=== PATIENT | female | born 1965 | race Caucasian/White ===

== ENCOUNTER → 2022-08-22 15:41 | Outpatient (REF) | payer BC, MEDICAID, SELFPAY | LOC: HO.SL 15:41 | PROVIDERS: PCP Nurse Practitioner Family; Visit Provider Psychiatry & Neurology Neurology | DX: G47.33 Obstructive sleep apnea (adult) (pediatric) (principal) | CPT/HCPCS: 95806 ==

== ENCOUNTER 2024-01-24 16:57 | Outpatient (REF) | payer BC, SELFPAY ==
--- NOTE | ~2024-01-24 | MR_ITS ---
EXAMINATION: MR LUMBAR SPINE WITHOUT CONTRAST CLINICAL INFORMATION: Radiculopathy. Pain in lower central spine, on and off . No radiation to lower extremities. COMPARISON: None. TECHNIQUE: Multiplanar multisequence MR imaging of the lumbar spine was done without IV contrast. FINDINGS: Coronal Alignment: Normal. No scoliosis. Sagittal Alignment: Normal lordosis. 2 mm retrolisthesis L2 on L3, and L4 on L5. Lumbosacral Junction: Normal. There are 5 [id number] lumbar-type vertebral bodies. Vertebral Bodies: Well maintained with normal height. No compression fractures, anomalies or other deformities. Disc Spaces and Endplates: Mild edematous endplate changes L5-S1 oriented to the right. Mild loss of disc height and signal spanning L3-S1, moderate at L5-S1. Disks are otherwise maintained. Spinal Canal: No abnormal developmental findings. Conus Medullaris: Terminates at L1. Morphology and signal is normal. Intradural Nerve Roots: Normal in appearance. No clumping or mass. T12-L1: No central canal or neural foraminal narrowing. L1-L2: No central canal or neural foraminal narrowing. L2-L3: Trace retrolisthesis. Mild bilateral facet degeneration. No significant central canal or neural foraminal narrowing. L3-L4: Mild bilateral hypertrophic degenerative facet changes. Mild posterior ligamentous thickening/involving. No significant central canal or subarticular recess narrowing. Mild bilateral neural foraminal narrowing. L4-L5: Moderate hypertrophic degenerative facet changes bilaterally, mild posterior ligamentous thickening, a diffuse minimal bulging symmetric disc. There is mild bilateral subarticular recess narrowing without contact or mass effect upon the traversing L5 roots. No central canal narrowing of significance. Mild bilateral neural foraminal narrowing. L5-S1: Moderate disc degeneration present. Moderate bilateral hypertrophic degenerative facet changes left greater than right. Shallow diffuse disc bulge present extending into both foraminal zones, contacting but not displacing the left greater than right S1 nerve roots within the subarticular recesses. Mild epidural lipomatosis within the subarticular recesses. No central canal narrowing. Mild to moderate right and mild left neural foraminal narrowing. Paravertebral and Included Extraspinal Soft Tissues: Normal caliber aorta. Imaged kidneys normal. Imaged SI joints normal. Paraspinal musculature normal. No abnormal adenopathy in the retroperitoneum. Imaged kidneys normal. MR/MR lumbar spine wo con IMPRESSION: 1. Mild multilevel lumbar spondylosis most significant at L5-S1 as discussed above. No definite nerve root impingement or high-grade central canal or neural foraminal stenosis. 2. Mild edematous endplate changes L5-S1 oriented to the right.
== END 2024-01-24 16:58 | disposition home or self-care (01) ==
LOC: HO.MRI 16:57
PROVIDERS: PCP Nurse Practitioner Family; Visit Provider Registered Nurse
DX: M54.16 Radiculopathy, lumbar region (principal)
CPT/HCPCS: 72148

== ENCOUNTER → 2024-01-24 16:58 | Outpatient (BNV) | payer BC, SELFPAY | PROVIDERS: PCP Nurse Practitioner Family; Visit Provider Radiology Diagnostic Radiology | DX: M47.896 Other spondylosis, lumbar region (principal) | CPT/HCPCS: 72148 ==

== ENCOUNTER 2024-07-29 15:21 | Emergency (ER) | payer BC, SELFPAY ==
--- NOTE | ~2024-07-29 | XR_ITS ---
EXAMINATION: XR CHEST CLINICAL INFORMATION: HTN COMPARISON: Chest radiograph May 12, 2016 TECHNIQUE: 2 views of the chest were obtained. FINDINGS: No significant abnormality is noted involving the heart, lungs, mediastinum, bony thorax or soft tissues. XR/XR chest 2V IMPRESSION: Unremarkable examination. Electronically signed by: Jeremi Tovar MD 07/29/2024 08:31 PM [facility]
--- NOTE | ~2024-07-29 | CT_ITS ---
EXAMINATION: CT HEAD WITHOUT CONTRAST CLINICAL INFORMATION: Headache. Hypertensive urgency. History of demyelinating disease. COMPARISON: Brain MRI from 07/11/2021. TECHNIQUE: Contiguous axial imaging was performed from the skull base to vertex without intravenous administration of contrast. This CT examination was performed using dose optimization techniques as appropriate, variously including the following: *Automated exposure control. *Adjustment of mA and/or kV according to patient size (this includes techniques or standardized protocols for targeted exams where dose is matched to indication/reason for exam; i.e. extremities or head). *Use of iterative reconstruction technique. DLP: 707 mGy-cm FINDINGS: There is no evidence of acute intracranial hemorrhage or edematous territorial infarction. Tatum-white matter differentiation is preserved. Scattered and partially confluent hypoattenuation in the periventricular and deep white matter. Proportional prominence of the ventricles and sulcal spaces without evidence of obstructive hydrocephalus. No abnormal mass effect or midline shift. No extra-axial fluid collections. Mild calcific atherosclerotic disease of the intracranial internal carotid arteries. No hyperdense vessel sign. No acute soft tissue or osseous abnormalities. Mild mucosal thickening of the paranasal sinuses. The mastoid air cells and middle ear cavities are clear. Dehiscence of the cartilaginous nasal septum. Left-sided lens extraction. CT/CT head/brain wo IV con IMPRESSION: 1. No evidence of acute intracranial hemorrhage or edematous territorial infarction. 2. Moderate to extensive underlying microangiopathy and generalized cerebral volume loss. Electronically signed by: Kushal Flores DO 07/29/2024 06:08 PM [facility] [place]
[2024-07-29 16:07] VITALS: BP 211/108; PULSE 90; RESP 16; TEMP 37; O2SAT 98; BMI 36.0
--- NOTE | 2024-07-29 16:11 | ECG_ITS ---
Test Reason : HYPERTENTION Blood Pressure : / mmHG Vent. Rate : 087 BPM Atrial Rate : 087 BPM P-R Int : 158 ms QRS Dur : 080 ms QT Int : 372 ms P-R-T Axes : 069 060 082 degrees QTc Int : 447 ms Normal sinus rhythm Nonspecific ST abnormality Abnormal ECG When compared with ECG of 12-MAY-2016 10:26, ST now depressed in Lateral leads Nonspecific T wave abnormality now evident in Lateral leads Referred By: Ami Ryder Electronically Signed By:Richy Franklin
--- NOTE | 2024-07-29 16:12 | ED.GENADULT ---
HPI - General Adult General Chief complaint: General Medical Stated complaint: High blood pressure Time Seen by Provider: 07/29/24 19:37 Source: patient Mode of arrival: ambulatory Limitations: no limitations History of Present Illness ED Provider: Dr. Suman Jansen HPI narrative: 58-year-old female with a history of migraine headaches, vertigo who presents emergency department for evaluation of elevated blood pressure. Patient states that 2 days prior she developed a spontaneous subconjunctival hemorrhage to her left medial I. She denied any eye pain, blurred vision. She states however she was had a persistent headache over the last week that is different from her migraine syndrome. The patient did go to an urgent care clinic and was given Cipro drops prophylactically to prevent corneal infection. She did have an elevated blood pressure at the urgent care clinic 158/72. She followed up today with her neurologist Dr. Paul for her headaches. She was seen in the office by an CAROL who noted an elevated blood pressure and refer the patient to the emergency department for evaluation. Patient states she does have a constant headache over the last week which is different than her migraines. She denied lightheadedness, dizziness, change in her vision, nausea, vomiting, chest pain, shortness of breath, dyspnea on exertion. Related Data Previous Rx's ?Medication ?Instructions ?Recorded lisinopril 10 mg tablet 10 mg PO DAILY #30 tabs 07/29/24 Allergies Allergy/AdvReac Type Severity Reaction Status Date / Time coconut [COCONUT] Allergy Mild NAUSEA & Unverified 07/29/24 16:11 VOMITING Sulfa (Sulfonamide Allergy Unknown RASH,ITCHY Unverified 07/29/24 16:11 Antibiotics) [SULFA (SULFONAMIDE ANTIBIOTICS)] Review of Systems Review of Systems: Yes all other systems are reviewed and are negative [facility] Past Medical History Medical History (Updated 07/30/24 @ 00:01 by Khushboo Byrd) Opioid abuse, in remission Cataract, left eye Migraine Surgical History (Updated 07/29/24 @ 20:31 by Luisa Sanford RN) H/O eye surgery S/P tonsillectomy Physical Exam ED Vital Signs: Vital Signs - 24 hr 07/29/24 16:07 07/29/24 19:55 Temperature 98.6 F 98 F Pulse Rate 90 85 Respiratory Rate 16 20 Blood Pressure 211/108 H 200/93 H Pulse Oximetry 98 97 Oxygen Delivery Method Room Air Room Air BMI result Body Mass Index 36.0 Vital signs did reveal elevated blood pressures 211/108 and 200/93 otherwise were unremarkable Exam: General: Awake, alert in no distress Head: Normocephalic, atraumatic EENT: PERRL, extraocular muscles intact, left eye did reveal a medial subconjunctival hemorrhage that does abut against the iris Neck: Supple, no adenopathy Lung: breath sounds symmetric, no wheezing, rales or rhonchi Chest: symmetric movement, nontender Heart: regular rate and rhythm, normal S1, S2 no murmurs or rubs Abdomen: soft, non-tender, nondistended, normal bowel sounds Back: no vertebral tenderness, no CVAT Extremities: no deformities, moves all extremities symmetrically Neuro: Awake, alert, oriented, normal speech, cranial nerves intact, moves all extremities symmetrically Psych: Pleasant, cooperative Course Course Course Narrative: This is a rapid medical exam performed by Ami Ryder PA-C. The patient is a 58-year-old female who presents with subconjunctival hemorrhage of the left eye and hypertensive urgency. Patient was at her neurologist's office, she was sent here for further assessment by Dr. Paul. Patient is neurologically intact, normal steady gait, no visual changes. We will be screening labs including troponin and urinalysis screening for end-organ damage, scanning her head, obtaining EKG and chest x-ray. Patient is able to return to the waiting room pending her assessment, we are trying to expedite her assessment. Medications Administered Discontinued Medications Generic Name Dose Route Start Last Admin Trade Name Freq PRN Reason Stop Dose Admin Lisinopril 10 mg 07/29/24 20:08 07/29/24 20:28 Lisinopril 10 Mg Tablet PO 07/29/24 20:09 10 mg ONCE ONE Administration Protocol Medical Decision Making Medical Decision Making MDM Narrative: 58-year-old female with a history of migraine headaches, vertigo who presents emergency department for evaluation of elevated blood pressure, left eye subconjunctival hemorrhage x2 days and headache x1 week. Vital signs did reveal elevated blood pressures otherwise unremarkable. Physical examination did reveal left medial subconjunctival hemorrhage but otherwise unremarkable. Differential diagnosis: ?Includes but is not limited to subarachnoid hemorrhage, subdural hemorrhage, stroke, renal disease, liver disease, essential hypertension, hypertensive emergency, electrolyte abnormalities, anemia Patient was initially treated with the following: Lisinopril 10 mg orally Course: My interpretation patient's laboratory evaluation is as follows: CBC was normal. CMP was normal. Troponin was below detectable limits. Urinalysis was negative for protein. CT scan of the head revealed no acute findings but she does have moderate to extensive underlying microangiopathy and generalized cerebral volume loss. Twelve EKG was unremarkable and chest x-ray was unremarkable. At this time I do not think the patient has hypertensive emergency and she most likely has essential hypertension. I did discuss this with the patient. The patient was started on lisinopril 10 mg daily. She was advised to check your blood pressures 3 times a week for the next 2 weeks and to try to establish follow up with a PCP. She was also advised to use her moisturizing eyedrops to prevent left sided conjunctival hemorrhage. She was given printed and verbal instructions and discharged home. Admission/Observation Consideration of admission/observation: Escalation of care including admission/observation considered (Yes) Lab Data MDM Lab Attestation statement: I reviewed the patient's lab results. 07/29/24 17:04 07/29/24 17:04 Labs: Lab Results 07/29/24 Range/Units 17:04 WBC 8.7 (4.8-10.8) X10*3/uL RBC 5.16 (4.20-5.50) X10*6/uL Hgb 15.3 (12.0-16.0) g/dl Hct 45.9 (37.0-47.0) % MCV 89.0 (80.0-98.0) fL MCH 29.7 (27.0-33.0) pg MCHC 33.3 (31.0-35.0) g/dl RDW 12.6 (11.0-16.0) % Plt Count 313 (160-400) X10*3/uL MPV 10.3 (9.4-12.3) fL Immature Gran % (Auto) 0.2 (0.0-0.4) % Neut % (Auto) 54.0 (45-73) % Lymph % (Auto) 36.4 (20-40) % [place] % (Auto) 6.7 (2-11) % Eos % (Auto) 1.8 (0-4) % Baso % (Auto) 0.9 (0-2) % Lymph # (Auto) 3.2 (1.2-4.9) X10*3/uL [place] # (Auto) 0.6 (0.1-1.2) X10*3/uL Eos # (Auto) 0.2 (0.0-0.4) X10*3/uL Baso # (Auto) 0.1 (0.0-0.2) X10*3/uL Abs Immat Gran (auto) 0.02 (0.00-0.03) X10*3/uL Absolute Neuts (auto) 4.7 (2.0-8.3) x10*3/uL Absolute Nucleated RBC 0.000 (0.0-0.012) X10*3/uL Nucleated RBC % (auto) 0.0 (0.0-0.2) /100WBC Sodium 142 (135-145) mmol/L Potassium 4.2 (3.3-5.1) mmol/L Chloride 106 (96-108) mmol/L Carbon Dioxide 27 (22-29) mmol/L Anion Gap 13 (12-20) BUN 10 (9-16) mg/dL Creatinine 0.67 (0.5-1.4) mg/dL Estim Creat Clear Calc 104.9 Estimated GFR > 60 Random Glucose 99 (60-115) mg/dL Calcium 9.9 (8.4-10.2) mg/dL Magnesium 2.0 (1.6-2.6) mg/dL Total Bilirubin 0.5 (0.0-1.0) mg/dL AST 25 (5-31) U/L ALT 30 (0-31) U/L Alkaline Phosphatase 111 (39-117) U/L Troponin I High Sens < 2.7 (<3.5-17.0) ng/L Total Protein 7.4 (6.5-8.0) g/dL Albumin 4.5 (3.5-5.0) g/dL Urine Color Yellow Urine Appearance Clear Urine pH 5.5 (5.0-9.0) Ur Specific [place] <= 1.005 (1.005-1.025) Urine Protein Negative (Neg-Trace) mg/dL Urine Glucose (UA) Negative (Negative) mg/dL Urine Ketones Negative (Negative) mg/dL Urine Blood Negative (Negative) Urine Nitrite Negative (Negative) Ur Leukocyte Esterase Small (1+) H (Negative) Urine RBC 0-2 (0-2) /HPF Urine WBC 0-5 (0-5) /HPF Ur Squamous Epith Cells 0-2 (0-2) /HPF Urine Bacteria None Seen (None Seen) Hyaline Casts 0-2 (0-2) /LPF Independent Interpretation I performed an independent interpretation of an: EKG and Plain X-Ray Interpretation: My independent interpretation the patient's 12 EKG done at 16:46 hours is as follows: Normal sinus rhythm with a rate of 87, normal SD interval, QRS duration QTC interval, no ST segment elevation, no ST segment depression, no PACs, no PVCs no significant T-wave abnormalities. My interpretation patient's two view chest x-ray is as follows: No acute disease Radiology Impression Discussion of test interpretation with radiology: I have reviewed the radiologist's reading. Radiologist Impression: CT head/brain wo IV con IMPRESSION: 1. No evidence of acute intracranial hemorrhage or edematous territorial infarction. 2. Moderate to extensive underlying microangiopathy and generalized cerebral volume loss. Electronically signed by: Kushal Flores DO 07/29/2024 06:[address] [facility] Dictated By: Jamin Flores DO Prescription Management I considered prescription management with: Other (Antihypertensive medication-lisinopril) Discharge Plan Discharge Clinical Impression: Subconjunctival hemorrhage of left eye, Hypertension Patient Disposition: Home, Self-Care Additional Instructions: Your blood work was unremarkable. Your chest x-ray was normal. Your EKG was normal. The CT scan of your brain revealed no bleeding in the brain, new stroke or tumor of the brain. High blood pressure instructions: The reason to check your blood pressure at home is to give your doctor an idea of what your blood pressure does when you are not in the doctor's office. Take your blood pressure in the mornings, Mondays , Wednesdays and Fridays and then write down these readings to discuss them with your doctor at your next visit. Do this for 2 weeks. If your doctor thinks that your blood pressures are too high then they will either increase your high blood pressure medication or start you on a 2nd high blood pressure medication once the 1st blood pressure medicine has been increased to the maximum dose. Blood pressure medications will take anywhere from 2-6 week before they reduce your blood pressure. The goal is to try to get 2 normal blood pressures over the next 2-6 months and over the rest of your life. Continue to use the Cipro drops for the subconjunctival hemorrhage also continue to use your moisturizing drops to help prevent a corneal abrasion. I prescribed lisinopril 10 mg once a day, 1 month supply with 3 refills. Try calling the following numbers to see if you can get a primary care provider to help you with your medical problems. [facility] PCP referral line [facility] Adult primary care and family medicine [facility] Dr. Santosh Frost is the doctor on-call for the emergency department today. You can try calling his office to see if he would be willing to take you on as a new patient and help you with your high blood pressure. Address: [address] [place] [address] [id number], [place] [address] Please return to the emergency department if your symptoms get worse or if you develop any new symptoms that are concerning to you. Prescriptions: New lisinopril 10 mg tablet 10 mg PO DAILY Qty: 30 3RF Interventions: ED Discharge Assessment Last Done: 07/29/24 20:49 Discharge Date/Time: 07/29/24 20:50 Print Language: Kosovan
[2024-07-29 17:10] LABS: MANUAL DIFF FLAG NO
[2024-07-29 17:13] LABS: Appearance Urine Clear; Color Urine Yellow; Glucose Urine UA Negative (Negative); Leukocyte Esterase Urine Small (1+) (Negative); Nitrite Urine Negative (Negative); PH 5.5 (5.0-9.0); Specific Gravity - Urine <= 1.005 (1.005-1.025); UMIC TRIGGER UACC YES; Urine Blood Negative (Negative); Urine Ketones Negative (Negative); Urine Protein Negative (Neg-Trace)
[2024-07-29 17:17] LABS: Basophils Absolute Auto 0.1 X10*3/uL (0.0-0.2); Basophils Percent Auto 0.9 % (0-2); Eosinophils Absolute Auto 0.2 X10*3/uL (0.0-0.4); Eosinophils Percent Auto 1.8 % (0-4); Hematocrit 45.9 % (37.0-47.0); Hemoglobin 15.3 g/dl (12.0-16.0); Imm Gran Abs Auto 0.02 X10*3/uL (0.00-0.03); Imm Gran Pct Auto 0.2 % (0.0-0.4); Lymphocytes Absolute Auto 3.2 X10*3/uL (1.2-4.9); Lymphocytes Percent Auto 36.4 % (20-40); Mean Corpuscular HGB Conc 33.3 g/dl (31.0-35.0); Mean Corpuscular Hemoglobin 29.7 pg (27.0-33.0); Mean Platelet Volume 10.3 fL (9.4-12.3); Monocytes Absolute Auto 0.6 X10*3/uL (0.1-1.2); Monocytes Percent Auto 6.7 % (2-11); Neutrophils Absolute Auto 4.7 x10*3/uL (2.0-8.3); Platelet Count 313 X10*3/uL (160-400); Red Blood Count 5.16 X10*6/uL (4.20-5.50); Red Cell Distribution Width 12.6 % (11.0-16.0); White Blood Count 8.7 X10*3/uL (4.8-10.8)
[2024-07-29 17:25] LABS: Bacteria Urine None Seen (None Seen); Hyaline Casts Urine 0-2 /LPF (0-2); RBC Urine 0-2 /HPF (0-2); Squamous Epithelial Cell Urine 0-2 /HPF (0-2); UACC Culture Trigger YES; WBC Urine 0-5 /HPF (0-5)
[2024-07-29 17:42] LABS: Troponin-I High Sensitivity < 2.7 ng/L (<3.5-17.0)
[2024-07-29 18:05] LABS: Alanine Aminotransferase 30 U/L (0-31); Albumin Level 4.5 g/dL (3.5-5.0); Alkaline Phosphatase 111 U/L (39-117); Anion Gap 13 (12-20); Aspartate Amino Transferase 25 U/L (5-31); Bilirubin Total 0.5 mg/dL (0.0-1.0); Blood Urea Nitrogen 10 mg/dL (9-16); Calcium 9.9 mg/dL (8.4-10.2); Carbon Dioxide 27 mmol/L (22-29); Chloride 106 mmol/L (96-108); Creatinine Clr Calc Pharmacy 104.9; Estimated Glomerular Filt Rate > 60; Glucose Random 99 mg/dL (60-115); Potassium 4.2 mmol/L (3.3-5.1); Sodium 142 mmol/L (135-145); Total Protein 7.4 g/dL (6.5-8.0)
[2024-07-29 19:55] VITALS: BP 200/93; PULSE 85; RESP 20; TEMP 36.6; O2SAT 97
[2024-07-29 20:28] VITALS: BP 200/93
[2024-07-29] MEDS: lisinopriL 10 MG TABLET PO (20:28)
--- NOTE | 2024-07-29 20:32 | PC.NURSE ---
pt a&ox3, pt medicated for htn, lt eye red- pt denies pain/does not have vision loss in that eye. per provider pt medicated for htn and can discharged.
[2024-07-29 20:49] VITALS: BP 200/93; PULSE 85; RESP 20; TEMP 36.6; O2SAT 97
== END 2024-07-29 20:50 | disposition home or self-care (01) ==
PROVIDERS: Physician Assistant Medical; Emergency Provider Emergency Medicine Emergency Medical Services
DX: H11.32 Conjunctival hemorrhage, left eye (principal); I16.0 Hypertensive urgency; R51.9 Headache, unspecified; R94.31 Abnormal electrocardiogram [ECG] [EKG]; Z79.899 Other long term (current) drug therapy
CPT/HCPCS: 36415; 70450; 71046; 80053; 81001; 83735; 84484; 85025; 87086; 93005; 99284; 99285

== ENCOUNTER → 2024-07-29 16:11 | Outpatient (BNV) | payer BC, SELFPAY | PROVIDERS: Emergency Provider Emergency Medicine Emergency Medical Services; Visit Provider Internal Medicine Cardiovascular Disease | DX: I10 Essential (primary) hypertension (principal) | CPT/HCPCS: 93010 ==

== ENCOUNTER 2024-08-13 15:19 | Outpatient (REF) | payer BC, SELFPAY ==
[2024-08-13 17:50] LABS: Folate 10.2 ng/mL (> or = 4.0); Vitamin B12 423 pg/mL (200-900)
[2024-08-13 17:58] LABS: TSH reflex Free T4 1.12 uIU/mL (0.32-4.0)
== END 2024-08-13 15:20 | disposition home or self-care (01) ==
LOC: HO.LAB 15:19
PROVIDERS: PCP Nurse Practitioner Family; Visit Provider Registered Nurse
DX: G31.84 Mild cognitive impairment of uncertain or unknown etiology (principal)
CPT/HCPCS: 36415; 82607; 82746; 84443

== ENCOUNTER 2024-11-05 12:54 | Outpatient (AMB) | payer BC, SELFPAY ==
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
[2024-11-05 13:18] VITALS: BP 121/62; PULSE 83; RESP 16; TEMP 36.5; O2SAT 98; BMI 33.4
--- OUTSIDE RECORDS SUMMARY | 2024-11-05 15:03 | XMS_ITS | Patient Health Record ---
Author Organization [facility] Address [address] [place] [address] Support Name Relationship Address Phone ABILIOJOEAN Guarantor Unknown [phone] Reason For Referral No Information Medications Medication SIG (Take, Route, Frequency, Duration) Notes Start Date End Date Status [place] Carbonate 100MG 1 ORAL three pricilla es daily for -3 [facility] 05/15/2012 Active LaMICtal 100MG 1 ORAL daily for -3 [facility] 05/15/2012 Active Immunizations Vaccine Route Administration Date Status Comme nts Influenza, live, intranasal Intramuscular 05/15/2012 Pendi ng Problems Problem Type SNOMED Code ICD Code Onset Dates Problem Status W/U Status Risk Notes Problem Chronic bipolar I disorder, most recent episode depressed (disorder) (08594845) Bipolar I disorder, most recent episode (or current) depressed, unspecified (296.50) Active confirmed Major Problem Migraine (disorder) (21629489) Migraine, unspecified without mention of intractable migraine without mention of status migrainosus (346.90) Active confirmed Major Problem Gynecological examination normal ([id number]) Routine gynecological examination (V72.31) Active confirmed Diag Problem Counseling ([id number]) Counseling NOS (V65.40) Active confirmed Diag Plan Of Treatment No Information Insurance Providers Payer Name Payer Address Payer Phone Subscriber Number Group Number Insured Name Patient Relationship to Insured Coverage Start Date Coverage End Date [facility] MEDIC[facility] PPO [address] [place] [address] [id number] SACHIN KNOX Self - patient is the insured
--- OUTSIDE RECORDS SUMMARY | 2024-11-05 15:03 | XMS_ITS | Clinical Summary ---
Author Organization [facility] Address [address] [place] [address] Care Team Providers Care Blueprinting Machine Operator Name Role Phone Laury Shine DANIELA Primary Care Provider [phone] Source Comments PLEASE NOTE, if this patient is a minor, it may be UNLAWFUL to discuss sensitive information that is contained in these records (such as FAMILY PLANNING, MENTAL HEALTH or SUBSTANCE ABUSE) with the minor patient's parent or other person without the patient's specific authorization.[facility] Allergies Active Allergy Reactions Criticality Noted Date Comments Sulfa (Sulfonamide Antibiotics) Rash 03/2015 Medications topiramate (TOPAMAX) 50 mg tabletIndicatio ns:Migraine without aura and with status migrainosus, not intractable Take by mouth 2 (two) times daily. 6 Active SUMAtriptan succinate (IMITREX) 100 mg tabletIndicatio ns:Migraine with aura and with status migrainosus, not intractable take 1 tablet by mouth every 4 hours if needed UP TO TWICE A DAY FOR 30 DAYS 0 8 Active polyethylene glycol 3350 17 gram/dose powderIndicatio ns:LLQ abdominal pain,Difficulty passing stool Take 17 g by mouth once daily 289 g 1 Active psyllium husk (METAMUCIL) 0.52 gram capsuleIndicati ons:LLQ abdominal pain,Difficulty passing stool Take 1 Capsule by mouth 2 (two) times daily as needed for constipation 30 Capsule 1 Active Active Problems Problem Noted Date Diagnosed Date Inclusion cyst of right breast 06/18/2019 Overview (06/18/2019): As per [facility] no mammographic evidence of malignancy and ultrasound 06/09/2019 showed large bilateral waxing waning cysts. A dominant cyst on the right accounts for palpable abnormality. S/P aspiration 06/10/2019 The cystic mass was completely aspirated with ultrasound guidance. There was no evidence of residual solid lesion. Pap smear for cervical cancer screening 08/18/20 16 Overview (2016): 07/2015 nil with ECC hpv neg Palpitation 2016 Overview (2016): Suspect drug to drug interaction- pt to speakn with psych prescriber Right leg pain 06/21/2016 Overview (06/21/2016): [facility] er 06/13/16- neg for DVT Demyelinating disease 04/29/2016 Overview (08/02/2016): 07/17/16- saw neuro again- assessment: migraine with aura/pineal gland cyst/ORTEGA/ptosis/DD- tx- topiramate 50mg bid, and r/t 4 mon Saw neuro- 05/22- dx with bipolar,migraine with aura,pineal gland cyst, ORTEGA,ptosis, and demylenating dz- r/t 2 month- he rev MRI form 03/2016- 04/06/16:Saw Dr. Jaden Gonzales, Neuro [phone]- Per neuro note- - doing MRI 03/2016- follow up 6 weeks- DUE approx 05/18 MELBA KNOX :1965 Result type:MRI Brain W/O ContrastResult date:04/19/2016 15:39Result status:Auth (Verified)Result title:MRI Brain W/O Contrast Performed by:-- Verified by:Brock Alejandre MD on April 20, 2016 16:32Encounter info:[id number], [facility], [facility], 04/19/2016 - Reason For Exam RESULT: MRI Brain W/O Contrast [facility] VISIT NUMBER :[id number] Patient Name : Melba Knox Date of : 1965 Date of Exam : 04/19/2016 Referring Physician : CHAMP GONZALES [address] [place] [address] Dr/[address] [place] [address] Exam : MR - BRAIN (C-) CPT 34234 - Room Description : [facility] Espr 1.5 Technique : Sag T1, Ax T2, Ax T2 Flair, Ax DWI, Ax SWI, Sag Flair Final Report HISTORY: Demyelinating disease. COMPARISON: 11/18/2010 performed at [facility] FINDINGS: Multiple supratentorial T2 hyperintense white matter lesions throughout the supratentorial white matter are again noted. There is at least one new lesion within the right frontal white matter (series 5, image 13) measuring 3 mm. The remainder of the lesions are similar, and the corpus callosum is similar in signal and configuration. A septated appearing pineal lesion is similar. The ventricles and sulci are unchanged in size. No new mass effect or extra-axial fluid collection. No restricted diffusion or abnormal susceptibility artifact. The visualized extracranial soft tissues and orbital structures are unremarkable. IMPRESSION: 1. Supratentorial T2 hyperintense white matter lesions are again noted. No particular feature is present to render a specific diagnosis. A new 3 mm lesion is present within the right frontal white matter. ----- PHYSICIAN : BROCK ALEJANDRE MD (Signature on file) 04/20/2016 Signature Line Dictated By: Brock Alejandre MD Dictated Date/Time: 04/20/16 4:32 pm Reviewed By: Brock Alejandre MD Signed By: Brock Alejandre MD Signed Date/Time: 04/20/16 4:32 pm Transcribed By: CHELSY Transcribed Date/Time: 04/20/16 4:32 pm Printed By: Sanjuana Bass NP Encounter for gynecological examination 08/04/20 Overview (12/22/2016): Pap done today 12/11/2016 NIl with ECc HPV neg- repeat 2021 H/O mammogram 08/04/2015 Overview (03/11/2018): [facility] 08/11/15 bilat dx mammo done-birads2, return to annual screen mammo due jul 2016 At 4 oclock [place] border, and at 9-10 oclock 1 in from border, screen and dx ord today( mammo) 03/04/18 [facility] mammo and L breast U/S. the palpable finding corresponds to a bilobed parallell circumscribed hypoechoic lesion with increased through transmission and no internal vascularity, most likely complicated cyst. U/S guided aspiration recommended to confirm. Should this not aspirate, biopsy would be needed. BIRADS 4. Smoker 02/17/2014 Bipolar 1 disorder 05/27/2013 Overview (2016): Followed by Eric burgess, has rxer- and counseling Migraine with aura 05/27/2013 Overview (06/02/2016): Emergent eye eval- 05/16/16- [facility] eye- [phone]- Retinal hemorrhage OS- - likely resolve on its own 04/06/[address] Kyra marquis MD Neuro- assessment- bipolar,migraine with aura,pineal gland cyst,ORTEGA,ptosis, dymelinating dz- tx start topiramate 50mg po BID, keep migraine diary, and do MRI no contrast for demyelinating dz [phone] Pineal gland cyst 05/27/2013 Overview (05/03/2016): Had known to have a pineal cyst- had MRI mar 2016- see Demyelinating dz prob for MRI report A septated appearing pineal lesion is similar. PUD (peptic ulcer disease) Overview (2016): symptoms back- testing for h pylori years ago, 1995 Epigastric abdominal pain Overview (10/06/2016): Saw GI 09/08/16 Joseph Luke PA-C- plann EGD 10/04/[address] garrido 07/2016 has re occurred- ref to gi years ago, 1995 Resolved Problems Problem Noted Date Diagnosed Date Resolved Date VNGMQUZE69/23/16 2016 08/16/2018 Immunizations Name Administration Dates Next Due HEP A-HEP B 2016 Hep A, adult 09/30/2015 Hep B, Adult/Adol (ENERGIX/RECOMBIVAX) 6,09/30/2015 INFLUENZA, SEASONAL, INJECTABLE 05/27/2013 INFLUENZA, SEASONAL, INJECTA BLE, PRESERVATIVE FREE 09/30/2015(Deferred: Out of Stock) Family History Medical History Relation Name Comments Arthritis Mother giant cell alondra ritis Cancer Mother skin CA, colon 2007 with surgery Hypertension Mother Relation Name Status Comments Brother Alive 3 brother 1 dep ression, the other 2 well Father (Age 51) ETOH Mother Alive Sister 1 Alive has 3, [address] [facility] home is 60 yr old, 1 passsed form DRUGs, 1 well Sister 2 Social History Tobacco Use Types Packs/Day Years Used Date Smoking Tobacco: Every Day Cigarettes 0.5 20 Smokeless Tobacco: Never Tobacco Cessation:Ready to Q uit: Yes; Counseling Given: Yes Comments:1/2 pack a day Alcohol Use Standard Drinks/Week Comments No 0 (1 standard drink = 0.6 oz pur e alcohol) none Social Connections Answer Date Recorded Connectedness 0 05/14/2024 Financial Resource Strain Answer Date R ecorded Financial Resource Strain 0 2018 Stress Answer Date Recorded Stress 0 04/19/2019 Physical Activity Answer Date Recorded Physical Activity 0 04/19/2019 Food Insecurity Answer Date Recorded Food 0 05/22/2024 Transportation Needs Answer Date Record ed Transportation 0 04/19/2019 Housing Stability Answer Date Recorded Housing 0 04/19/2019 Safety and Environment Answer Date Jose Cruz rded Safety 0 04/19/2019 Utilities Answer Date Recorded Utilities 0 04/19/2019 Employment Answer Date Recorded Stress 0 05/14/2024 Comments No Sex and Gender Information Value Date Recorded Sex Assigned at Female 11/02/2017 5:13 AM PST Legal Sex Female 10:09 AM PDT Gender Identity Female 11/02/2017 5:13 AM PST Sexual Orientation Don't know 11/02/2017 5: 13 AM PST 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 Not on file Not on file Last Filed Vital Signs Vital Sign Reading Time Taken Comments Blood Pressure 141/88 03/21/2021 10:13 AM EDT Pulse 99 03/21/2021 10:13 AM EDT Temperature 37.2 ??C (98.9 ??F) 03/21/2021 10:13 AM E DT Respiratory Rate 16 03/21/2021 10:13 AM EDT Oxygen Saturation 98% 05/10/2018 9:30 AM EDT Inhaled Oxygen Concentration - - Weight 95.3 kg (210 lb) 03/21/2021 10:13 AM EDT Height 165.1 cm (5' 5 ) 06/13/2016 8:49 AM EDT Body Mass Index 34.95 06/13/2016 8:49 AM EDT Plan of Treatment Health Maintenance Due Date Last Done Comments HPV Screening 1965 Imm-DTaP/Tdap/Td (1 - Tdap) 1986 Imm-Pneumococcal (1 of 2 - PCV) 1986 CT Colonography 2012 Colonoscopy 2012 Colorectal Cancer Screening 2012 FIT/gFOBT 2012 Fecal DNA 2012 Flexible Sigmoidoscopy 2012 Tobacco Cessation Counseling (#1) 02/17/2015 014, 02/23/2014 Tobacco Screening 06/15/2015 06/15/2014, 02/23/2014 Imm-Zoster, Recombinant (1 of 2) 2017 Pap Smear 08/04/2018 08/04/2015, 08/04/2015 Annual Preventive Care Visit 08/16/2019, 12/11/2016, 2016, Additional history exists Diabetes Screening 2019 2016, 0 05/03/2016, 08/23/2015, Additional history exists Breast Cancer Screening (Mammogram) 06/09/2020 06/09/2019, 10/09/2016, 08/11/2015 Cervical Cancer Screening 08/04/2020 Pap + HPV 08/04/2020 08/04/2015 Lipid Screening 08/23/2020 08/23/2015 Hypertension Screening (#1) 03/21/2022 Bpn-BLXAZ-11 ( season) 2024 021, 11/26/2020 Imm-Influenza (#1) 2024 05/27/2013 Alcohol and Drug Screen 08/27/2024 09/24/19 20, 06/03/2019, 02/18/2018, Additional history exists Depression Annual Screen 08/27/2024 020, 02/18/2018, 04/02/2017 (Managed by Outside Provider) HIV Screening Completed 2016 Hepatitis C Screening Completed 2016, 015 Imm-Hepatitis B Completed 2016, 11/2015, 09/30/2015 Cervical Ablation/Cold-Knife Conization Discontinued Cervical Cryotherapy Discontinued Colposcopy Discontinued Endometrial Biopsy Discontinued Excision/Leep Discontinued HPV Genotyping Discontinued Vaginal Pap Discontinued Vulvoscopy Discontinued Procedures Procedure Name Priority Date/Time Associated Diagnosis Comments MAMMOGRAM BI-RADS, ABSTRACTED Routine 06/09/2019 10:12 AM EDT ANTIBODY HIV-1&HIV-2 SINGLE RESULT Routine 2016 3:52 PM EST Screening examination for venereal disease HEPATITIS A,B,C PANEL Routine 2016 3:52 PM EST Screening examination for venereal disease GLUCOSE, BLOOD (POCT) 22424 Routine 2016 3:27 PM EST Palpitation Dizzy LIPID PANEL Routine 08/23/2015 8:24 AM EST Routine adult health maintenance PAP, LIQUID BASED Routine 08/04/2015 2:5 6 PM EST Pap smear for cervical cancer screening Encounter for gynecological examination from Last 3 Months or Most Recently Relevant to Health Maintenance Results * MAMMOGRAM BI-RADS, ABSTRACTED (06/09/2019 10:12 AM EDT) BI-RADS ASSESSMENT 1 - Negative: means that there is no significant or noticeable abnormality to report. BI-RADS FOLLOW-UP 1 - Routine Screening Anatomical Region Laterality Modality Other Impressions 06/09/2019 10:12 AM EDT As per [facility] breast and [facility] no mammographic evidence of malignancy. Large bilateral waxing waning cysts. A dominant cyst on the right accounts for palpable abnormality. I have discussed the findings directly with the patient. The cystic mass was completely aspirated on 06/10/2019 with ultrasound guidance. There was no evidence of residual solid lesion. us Provider Jose LOPEZ MAMMO Final Result * HEPATITIS A,B,C PANEL (2016 3:52 PM EST) HEPATITIS B SURFACE ANTIBODY NEGATIVE NEGATIVE [facility] HEPATITIS B SURFACE ANTIGEN NEGATIVE NEGATIVE [facility] HEPATITIS C VIRUS DIAGNOSTIC NEGATIVE NEGATIVE [facility] HEPATITIS B CORE ANTIBODY NEGATIVE NEGATIVE [facility] HEPATITIS A ANTIBODY TOTAL NEGATIVE NEGATIVE [facility] Blood specimen (specimen) Blood / Unknown 2016 3:52 PM EST 2016 4:04 PM EST [facility] - 2016 6:36 PM EST [facility] [address] [place] [address] BASELINE:1548 SAMPLE:1604 PT ID [id number] ORD# [id number] us Sanjuana TIPTON LAB - BLOOD DRAW Edited Resul t - Final Performing Organization Address [facility]/ZIP Co de Phone Number [address] [address], [place] [phone] * HIV-1 & HIV-2 ANTIBODIES (2016 3:52 PM EST) Pathologist [facility] HIV 1 AND 2 ANTIBODY SCREEN NEGATIVE NEGATIVE [facility] Comment: This assay is a 4th generation assay allowing for earlier detection of HIV infection by detecting the presence of the HIV-1 p24 antigen as well as the traditional antibodies to HIV type 1 (including group O) and type 2. ??Use of a 4th generation assay is the current CDC recommendation for HIV screening. Blood specimen (specimen) Blood / Unknown 2016 3:52 PM EST 2016 4:04 PM EST [facility] - 2016 7:06 PM EST [facility] [address] [place] [id number] BASELINE:1548 SAMPLE:1604 PT ID [id number] ORD# [id number] us Sanjuana TIPTON [facility] - BLOOD DRAW Final Result Performing Organization Address [facility]/ZIP Co de Phone Number [address] [address], [place] [phone] * GLUCOSE, BLOOD (POCT) [id number] (2016 3:27 PM EST) GLUCOSE 130 65 - 139 mg/dL [facility] OFFICE POCT Blood specimen (specimen) Blood / Unknown 2016 3:27 PM EST Sanjuana TIPTON [facility] - BLOOD DRAW Final Result [facility] POCT * (ABNORMAL) LIPID PANEL (08/23/2015 8:24 AM EST) CHOLESTEROL 195 0 - 200 mg/dL [facility] TRIGLYCERIDES 124 0 - 150 mg/dL [facility] HDL CHOLESTEROL 56 >40 mg/dL [facility] LDL CALCULATED 115(H) 0 - 100 mg/dL [facility] TC-HDLC RATIO 3.5 0 - 4.4 mg/dL [facility] Blood specimen (specimen) Blood / Unknown 08/23/2015 8:24 AM EST 08/23/2015 8:24 AM EST Narrative [facility] - 08/23/2015 11:11 AM EST [facility] [address] [place] [address] PT ID [id number] ORD# [id number] Kerry Lamar NP LAB - BLOOD DRAW Edited Result - Final [facility] [address] [place] [address], * PAP, LIQUID BASED (08/04/2015 2:56 PM EST) PAP NIL with ECc HPV neg NORMAL - ABNORMAL [facility] GC/CHLAMYDIA neg [facility] Specimen from uterine cervix (specimen) Cervix uteri structure / Unknown 08/04/2015 2:56 PM EST Sanjuana Shelia ANP LAB - NO BLOOD DRAW Final Res ult [facility] [address] [place] [address], from Last 3 Months or Most Recently Relevant to Health Maintenance Insurance [employer] Subscriber Plan / Payer (Ef fective 2014-Present) Name:Melba Knox Relation to Subscriber:Self Name:MELBA KNOX Payer ID:[id number] Type:Indemnity Address: [address] [place] [address] [place] Care Teams Blueprinting Machine Operator Relationship Specialty Start Date End Date Laury Shine FNP [address] [place] [address] PCP - General Family Medicine, FLEXO FOLDER GLUER OPERATOR 09/22/16
== END 2024-11-05 14:16 | disposition home or self-care (01) ==
PROVIDERS: PCP Nurse Practitioner Family; Visit Provider Nurse Practitioner Family
DX: Z00.00 Encounter for general adult medical examination without abnormal findings (principal); F31.81 Bipolar II disorder; E66.9 Obesity, unspecified; Z68.33 Body mass index [BMI] 33.0-33.9, adult; I10 Essential (primary) hypertension; F41.9 Anxiety disorder, unspecified; F32.A Depression, unspecified; Z12.31 Encounter for screening mammogram for malignant neoplasm of breast; F17.210 Nicotine dependence, cigarettes, uncomplicated; Z23 Encounter for immunization

== ENCOUNTER → 2024-11-05 12:54 | Outpatient (BNVA) | payer BC, SELFPAY | PROVIDERS: Visit Provider Nurse Practitioner Family | DX: Z00.00 Encounter for general adult medical examination without abnormal findings (principal); Z23 Encounter for immunization; I10 Essential (primary) hypertension; F41.9 Anxiety disorder, unspecified; F32.A Depression, unspecified; F31.81 Bipolar II disorder; E66.9 Obesity, unspecified; Z68.33 Body mass index [BMI] 33.0-33.9, adult; F17.210 Nicotine dependence, cigarettes, uncomplicated; Z79.899 Other long term (current) drug therapy | CPT/HCPCS: 90471; 90715; 96127 ==

== ENCOUNTER 2024-11-18 08:49 | Outpatient (REF) | payer BC, SELFPAY ==
[2024-11-18 11:14] LABS: Cholesterol 207 mg/dL (<200); HDL Cholesterol 43 mg/dL (>40); LDL Cholesterol Calculated 139 mg/dL (<100); Triglycerides 128 mg/dL (<150)
[2024-11-18 11:32] LABS: Vitamin D 25-OH Total 33.9 ng/mL (>30)
[2024-11-18 11:43] LABS: Creatinine Urine 121.18 mg/dL; Microalbum/Creatinine Ratio Ur 10.7 ug/mg cr (<30)
== END 2024-11-18 08:50 | disposition home or self-care (01) ==
LOC: HO.HMGCLDS 08:49
PROVIDERS: PCP Nurse Practitioner Family; Visit Provider Nurse Practitioner Family
DX: Z00.00 Encounter for general adult medical examination without abnormal findings (principal)
CPT/HCPCS: 36415; 80061; 82043; 82306; 82570

== ENCOUNTER 2024-11-24 14:21 | Outpatient (AMB) | payer BC, SELFPAY ==
--- NOTE | 2024-11-24 14:16 | A.OFFPC_ITS ---
Intake Visit Reasons: 2 wk fu blood work Intake Note: patient here for 2 wks telehealth follow up for blood work Computer Operator Required: No Is last menstrual period known: No Post menopausal: No Patient : No Allergies coconut [COCONUT] Allergy (Mild, Verified 11/24/24 14:17) NAUSEA & VOMITING Sulfa (Sulfonamide Antibiotics) [SULFA (SULFONAMIDE ANTIBIOTICS)] Allergy (Unkn own, Verified 11/24/24 14:17) RASH,ITCHY Tobacco use date assessed: 11/24/24 Dental Screening Dental Screen Date: 11/24/24 Did you have a dental visit in the last 12 months?: No Did you have a dental problem in the last 6 months where you did not have access to dental care?: No Was dental information given to patient?: No HPI HPI Comments History of Present Illness Details 59-year-old [facility] results. She admits to taking her medications as prescribed without adverse reactions. She offers no complaints and denies acute symptoms at this time. [facility] Medical History (Updated 11/24/24 @ 15:05 by Shirley Batres CNP) Bipolar 1 disorder Depression Anxiety Vertigo Swelling of both ankles Opioid abuse, in remission Cataract, left eye Migraine Surgical History (Updated 11/05/24 @ 13:23 by Olya Lowe MA) H/O tubal ligation H/O eye surgery S/P tonsillectomy Family History (Updated 11/05/24 @ 13:18 by Olya Lowe MA) Father Alcohol abuse Sister Alcohol abuse FH: mental illness High blood pressure Brother Substance abuse High blood pressure Diabetes Mother High blood pressure Skin cancer Colon cancer Kidney disease Social History Housing: House Patient Tobacco Use Status: Current everyday Tobacco user Cigarettes Per Day: 10 Years Smoked: 20 e-Cigarette/Vaping Use: Never Used Second Hand Smoke Exposure: No service: No Current occupational status: employed 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 Current occupational exposures/hazards: No Cognitive needs: No Hearing needs: No Vision needs: Yes Questionnaire Thrive Questionnaire Date Thrive assessed: 10/29/24 I am a: Patient What is your living situation today?: I have a steady place to live Within the past 12 months, did the food you bought not last and you didn't have the money to get more?: Never true Within the past 12 months, did you worry whether your food would run out before you got money to buy more?: Never true Do you have trouble paying for medicines?: No Do you have trouble getting transportation to medical appointments?: No Do you have trouble paying your heating and electricity bill?: No Do you have trouble taking care of your child, family member or friend?: No Do you have trouble with day-to-day activities such as bathing, preparing meals, shopping, managing finances, etc.?: No Are you currently unemployed and looking for a job?: No Are you interested in more education?: No Please select the resources that you would like help with: None THRIVE Score: 0 HAMMAD-7 AMB Questionnaire HAMMAD-7 Date HAMMAD - 7 assessed: 11/05/24 Source: Developed by Drs. Raad Willard, Herminia Garcia, Al Finney and colleagues, with an educational mary from [employer]. Review of Systems Const Details: Denies chills, Denies fatigue, Denies fever(s), Denies headache(s) and Denies weakness Cardiac Denies chest pain, Denies claudication, Denies leg edema, Denies lightheadedness, Denies palpitations, Denies dyspnea, Denies dyspnea on exertion, Denies orthopnea and Denies other (Loss of consciousness) Resp Denies cough, Denies excessive phlegm production, Denies dyspnea, Denies dyspnea on exertion, Denies snoring and Denies wheezing Physical exam (Primary Care) Tobacco/Smoking Status: Tobacco use Status Tobacco use date assessed 11/24/24 11/24/24 14:19 Patient Tobacco Use Status Current everyday Tobacco 11/24/24 14:19 e-Cigarette/Vaping Use Never Used 11/24/24 14:19 Thrive Assessment: Date of Thrive Assessment Date Thrive assessed 10/29/24 11/24/24 14:19 Const Other: Patient is alert and oriented x3. Telehealth Telehealth Telehealth Platform: Telephone Location of provider rendering services: practice address Location of patient: address on file Patient Identification confirmed using: Name, : Yes Telehealth method: voice only Patient verbally consented to treatment: Yes Patient verbally consented to billing insurance company: Yes Patient informed of any privacy concerns related to visit: Yes Coding Level of Care Code Tele New Pt Level 3 (37243) Diagnoses Hypercholesterolemia E78.00 Time Spent (min) 10 Assessment & Plan Assessment & Plan (1) Hypercholesterolemia: Code(s): E78.00 - Pure hypercholesterolemia, unspecified Category: Medical Plan: Recent total cholesterol and LDL levels are slightly elevated, 207 and 139 respectively. Advised to limit foods high in saturated fat and avoid foods high in trans fat. Routine exercise encouraged. Fast for 10-12 hours, may drink water, and perform lipid panel blood work 2-3 days before next visit. Follow-up as scheduled in January for hypercholesterolemia and hypertension or sooner with symptoms or concerns. Verbalized understanding and agreed with treatment plan. Orders: Orders Lipid Panel 2 Months E78.00 - Pure hypercholesterolemia, unspecified Medications: Refilled lisinopril 10 mg PO DAILY 30 tabs 3RF
--- OUTSIDE RECORDS SUMMARY | 2024-11-24 16:11 | XMS_ITS | Patient Health Record ---
Author Organization [facility] Address [address] [place] [address] Support Name Relationship Address Phone ABILIOJOEAN Guarantor Unknown [phone] Reason For Referral No Information Medications Medication SIG (Take, Route, Frequency, Duration) Notes Start Date End Date Status Horatio Carbonate 100MG 1 ORAL three pricilla es daily for -3 [facility] 05/15/2012 Active LaMICtal 100MG 1 ORAL daily for -3 [facility] 05/15/2012 Active Immunizations Vaccine Route Administration Date Status Comme nts Influenza, live, intranasal Intramuscular 05/15/2012 Pendi ng Problems Problem Type SNOMED Code ICD Code Onset Dates Problem Status W/U Status Risk Notes Problem Chronic bipolar I disorder, most recent episode depressed (disorder) (07831094) Bipolar I disorder, most recent episode (or current) depressed, unspecified (296.50) Active confirmed Major Problem Migraine (disorder) (66958983) Migraine, unspecified without mention of intractable migraine without mention of status migrainosus (346.90) Active confirmed Major Problem Gynecological examination normal (225894003881144) Routine gynecological examination (V72.31) Active confirmed Diag Problem Counseling (574528328) Counseling NOS (V65.40) Active confirmed Diag Plan Of Treatment No Information Insurance Providers Payer Name Payer Address Payer Phone Subscriber Number Group Number Insured Name Patient Relationship to Insured Coverage Start Date Coverage End Date [facility] PPO [address] [place] [address] [id number] SACHIN KNOX Self - patient is the insured
--- OUTSIDE RECORDS SUMMARY | 2024-11-24 16:11 | XMS_ITS | Clinical Summary ---
Author Organization [facility] Address [address] [place] [address] Care Team Providers Care Clam Shovel Operator Name Role Phone Laury Shine DANIELA Primary Care Provider [phone] Source Comments PLEASE NOTE, if this patient [...] right breast 06/18/2019 Overview (06/18/2019): As per [facility] no mammographic evidence [...] form 03/2016- 04/06/16:Saw Dr. Jaden Gonzales, Neuro [phone]- Per neuro note- - doing MRI 03/2016- follow up 6 weeks- DUE approx 05/18 MELBA KNOX :1965 Result type:MRI Brain W/O ContrastResult date:04/19/2016 15:39Result status:Auth (Verified)Result title:MRI Brain W/O Contrast Performed by:-- Verified by:Brock Alejandre MD on April 20, 2016 16:32Encounter info:[id number], [facility], [facility], 04/19/2016 - Reason For Exam RESULT: MRI Brain W/O Contrast [facility] VISIT NUMBER :[id number] Patient Name : Melba Knox Date of : 1965 Date of Exam : 04/19/2016 Referring Physician : CHAMP GONZALES [address] [place] [address] Dr/Gokul [address] [place] [address] Exam : MR - BRAIN (C-) CPT 12478 - Room Description : [facility] Espr 1.5 Technique : Sag T1, Ax T2, Ax T2 Flair, Ax DWI, Ax SWI, Sag Flair Final Report HISTORY: Demyelinating disease. COMPARISON: 11/18/2010 performed at [facility] FINDINGS: Multiple supratentorial T2 hyperintense white matter [...] Date/Time: 04/20/16 4:32 pm Reviewed By: Brock lAejandre MD Signed By: Brock Alejandre MD Signed Date/Time: 04/20/16 4:32 pm Transcribed By: CHELSY Transcribed Date/Time: 04/20/16 4:32 pm Printed By: Sanjuana Bass NP Encounter for gynecological examination 08/04/20 Overview (12/22/2016): Pap done today 12/11/2016 NIl with ECc HPV neg- repeat 2021 H/O mammogram 08/04/2015 Overview (03/11/2018): [facility] 08/11/15 bilat dx mammo done-birads2, return to [...] (06/02/2016): Emergent eye eval- 05/16/16- PV eye- [phone]- Retinal hemorrhage OS- - likely resolve on its own 04/06/[address] 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 Overview (05/03/2016): Had [...] Problem Noted Date Diagnosed Date Resolved Date [id number]/23/16 2016 08/16/2018 Immunizations Immunization Administration Dates Next Due HEP A-HEP B [...] Sister 1 Alive has 3, 1 in [facility] home is 60 yr old, 1 passsed [...] Health Maintenance Due Date Last Done Comments Anxiety Screening 1965 HPV Screening 1965 Imm-DTaP/Tdap/Td (1 - Tdap) [...] Screening 08/23/2020 08/23/2015 Hypertension Screening (#1) 03/21/2022 [id number] ( season) 2024 021, 11/26/2020 Imm-Influenza (#1) [...] examination for venereal disease GLUCOSE, BLOOD (POCT) 17862 Routine 2016 3:27 PM EST Palpitation Dizzy [...] Impressions 06/09/2019 10:12 AM EDT As per [facility] no mammographic evidence [...] HEPATITIS A,B,C PANEL (2016 3:52 PM EST) Pathologist [facility] HEPATITIS B SURFACE ANTIBODY NEGATIVE NEGATIVE [facility] HEPATITIS B SURFACE ANTIGEN NEGATIVE NEGATIVE [facility] HEPATITIS C VIRUS DIAGNOSTIC NEGATIVE NEGATIVE [facility] HEPATITIS B CORE ANTIBODY NEGATIVE NEGATIVE [facility] HEPATITIS A ANTIBODY TOTAL NEGATIVE NEGATIVE [facility] Blood specimen (specimen) Blood / Unknown 2016 3:52 PM EST 2016 4:04 PM EST Narrative [facility] - 2016 6:36 PM EST [facility] [address] [place] [address] BASELINE:1548 SAMPLE:1604 PT ID [id number] ORD# [id number] us Sanjuana TIPTON LAB - BLOOD DRAW Edited Resul t - Final Performing Organization Address City/[facility]/ZIP Co de Phone Number [address] [address], [place] [phone] * HIV-1 & HIV-2 ANTIBODIES (2016 3:52 PM EST) Pathologist [facility] HIV 1 AND 2 ANTIBODY SCREEN NEGATIVE NEGATIVE [facility] Comment: This assay is a 4th generation [...] 3:52 PM EST 2016 4:04 PM EST Narrative [facility] - 2016 7:06 PM EST [facility] [address] [place] [address] BASELINE:1548 SAMPLE:1604 PT ID [id number] ORD# [id number] us Sanjuana TIPTON LAB - BLOOD DRAW Final Result Performing Organization Address [facility]/ZIP Co de Phone Number [address] [address], [place] [phone] * GLUCOSE, BLOOD (POCT) 62766 (2016 3:27 PM EST) GLUCOSE 130 65 - 139 mg/dL [facility] POCT Blood specimen (specimen) Blood / Unknown 2016 3:27 PM EST Sanjuana Bass ANP LAB - BLOOD DRAW Final Result [facility] POCT * (ABNORMAL) LIPID PANEL (08/23/2015 8:24 AM EST) CHOLESTEROL 195 0 - 200 mg/dL [facility] TRIGLYCERIDES 124 0 - 150 mg/dL [facility] HDL CHOLESTEROL 56 >40 mg/dL [facility] LDL CALCULATED 115(H) 0 - 100 mg/dL [facility] TC-HDLC RATIO 3.5 0 - 4.4 mg/dL [facility] Blood specimen (specimen) Blood / Unknown 08/23/2015 8:24 AM EST 08/23/2015 8:24 AM EST Narrative [facility] - 08/23/2015 11:11 AM EST [facility] [address] [place] [address] PT ID [id number] ORD# [id number] Kerry Lamar NP LAB - BLOOD DRAW Edited Result - Final [facility] [address] [place] [address], * PAP, LIQUID BASED (08/04/2015 2:56 PM EST) PAP NIL with ECc HPV neg NORMAL - ABNORMAL [facility] GC/CHLAMYDIA neg [facility] Specimen from uterine cervix (specimen) Cervix uteri structure / Unknown 08/04/2015 2:56 PM EST Sanjuana Shelia ANP LAB - NO BLOOD DRAW Final Res ult [facility] [address] [place] [address], from Last 3 Months or Most Recently Relevant to Health Maintenance Insurance [employer] Member Subscriber Plan / Payer (Ef fective 2014-Present) Name:Melba Knox Relation to Subscriber:Self Name:MELBA KNOX Payer ID:[id number] Type:Indemnity Address: [address] [place] [address] [place] Care Teams Clam Shovel Operator Relationship Specialty Start Date End Date Laury Shine FNP [address] [place] [address] PCP - General Family Medicine, SOAP PRESS FEEDER 09/22/16
== END 2024-11-24 15:17 | disposition home or self-care (01) ==
LOC: HO.HMCFM 14:21
PROVIDERS: PCP Nurse Practitioner Family; Visit Provider Nurse Practitioner Family
DX: E78.00 Pure hypercholesterolemia, unspecified (principal)

== ENCOUNTER → 2024-11-24 14:21 | Outpatient (BNVA) | payer BC, SELFPAY | PROVIDERS: PCP Nurse Practitioner Family; Visit Provider Nurse Practitioner Family ==

== ENCOUNTER 2024-12-10 08:53 | Outpatient (REF) | payer BC, SELFPAY ==
--- OUTSIDE RECORDS SUMMARY | 2024-12-10 09:24 | XMS_ITS | Clinical Summary ---
Author Organization [facility] Address [address] [place] [address] Care Team Providers Care Hair Clipper Power Name Role Phone Laury Shine DANIELA Primary Care Provider [phone] Source Comments PLEASE NOTE, if this patient [...] right breast 06/18/2019 Overview (06/18/2019): As per [facility] no mammographic [...] form 03/2016- 04/06/16:Saw Dr. Jaden Gonzales, Neuro [phone]- Per neuro note- - doing MRI 03/2016- follow up 6 weeks- DUE approx 05/18 MELBA KNOX :1965 Result type:MRI Brain W/O ContrastResult date:04/19/2016 15:39Result status:Auth (Verified)Result title:MRI Brain W/O Contrast Performed by:-- Verified by:Brock Alejandre MD on April 20, 2016 16:32Encounter info:[id number], [facility], [facility], 04/19/2016 - Reason For Exam RESULT: MRI Brain W/O Contrast [facility] VISIT NUMBER :[id number] Patient Name : Melba Knox Date of : 1965 Date of Exam : 04/19/2016 Referring Physician : CHAMP GONZALES [address] [place] [address] Dr/Gokul [address] [place] [address] Exam : MR - BRAIN (C-) CPT 30153 - Room Description : [facility] Espr 1.5 Technique : Sag T1, Ax T2, Ax T2 Flair, Ax DWI, Ax SWI, Sag Flair Final Report HISTORY: Demyelinating disease. COMPARISON: 11/18/2010 performed at [facility] FINDINGS: Multiple supratentorial T2 hyperintense white matter [...] repeat 2021 H/O mammogram 08/04/2015 Overview (03/11/2018): [facility] 08/11/15 bilat dx mammo done-birads2, return to [...] (06/02/2016): Emergent eye eval- 05/16/16- PV eye- [phone]- Retinal hemorrhage OS- - likely resolve on its own 04/06/[address] 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 Overview (05/03/2016): Had [...] Problem Noted Date Diagnosed Date Resolved Date [id number]/23/16 2016 08/16/2018 Immunizations Immunization Administration Dates Next [...] Sister 1 Alive has 3, 1 in [facility] home is 60 yr old, 1 [...] Screening 08/23/2020 08/23/2015 Hypertension Screening (#1) 03/21/2022 [id number] ( season) 2024 021, 11/26/2020 Imm-Influenza (#1) [...] examination for venereal disease GLUCOSE, BLOOD (POCT) 22224 Routine 2016 3:27 PM EST Palpitation Dizzy [...] Impressions 06/09/2019 10:12 AM EDT As per [facility] no mammographic [...] A,B,C PANEL (2016 3:52 PM EST) Pathologist [facility] HEPATITIS B SURFACE ANTIBODY NEGATIVE NEGATIVE [facility] HEPATITIS B SURFACE ANTIGEN NEGATIVE NEGATIVE [facility] HEPATITIS C VIRUS DIAGNOSTIC NEGATIVE NEGATIVE [facility] HEPATITIS B CORE ANTIBODY NEGATIVE NEGATIVE [facility] HEPATITIS A ANTIBODY TOTAL NEGATIVE NEGATIVE [facility] Blood specimen (specimen) Blood / Unknown 2016 3:52 PM EST 2016 4:04 PM EST Narrative [facility] - 2016 6:36 PM EST [facility] [address] [place] [address] BASELINE:1548 SAMPLE:1604 PT ID [id number] ORD# [id number] us Sanjuana TIPTON LAB - BLOOD DRAW Edited Resul t - Final Performing Organization Address City/[facility]/ZIP Co de Phone Number [address] [address], [place] [phone] * HIV-1 & HIV-2 ANTIBODIES (2016 3:52 PM EST) Pathologist [facility] HIV 1 AND 2 ANTIBODY SCREEN NEGATIVE NEGATIVE [facility] Comment: This assay is a 4th generation [...] PM EST 2016 4:04 PM EST Narrative [facility] - 2016 7:06 PM EST [facility] [address] [place] [address] BASELINE:1548 SAMPLE:1604 PT ID [id number] ORD# [id number] us Sanjuana TIPTON LAB - BLOOD DRAW Final Result Performing Organization Address [facility]/ZIP Co de Phone Number [address] [address], [place] [phone] * GLUCOSE, BLOOD (POCT) 99770 (2016 3:27 PM EST) GLUCOSE 130 65 - 139 mg/dL [facility] POCT Blood specimen (specimen) Blood / Unknown 2016 3:27 PM EST Sanjuana Bass ANP LAB - BLOOD DRAW Final Result [facility] POCT * (ABNORMAL) LIPID PANEL (08/23/2015 8:24 AM EST) CHOLESTEROL 195 0 - 200 mg/dL [facility] TRIGLYCERIDES 124 0 - 150 mg/dL [facility] HDL CHOLESTEROL 56 >40 mg/dL [facility] LDL CALCULATED 115(H) 0 - 100 mg/dL [facility] TC-HDLC RATIO 3.5 0 - 4.4 mg/dL [facility] Blood specimen (specimen) Blood / Unknown 08/23/2015 8:24 AM EST 08/23/2015 8:24 AM EST Narrative [facility] - 08/23/2015 11:11 AM EST [employer] [address] [place] [address] PT ID [id number] ORD# [id number] Kerry Lamar NP LAB - BLOOD DRAW Edited Result - Final [facility] [address] [place] [address], * PAP, LIQUID BASED (08/04/2015 2:56 PM EST) PAP NIL with ECc HPV neg NORMAL - ABNORMAL [facility] GC/CHLAMYDIA neg [facility] Specimen from uterine cervix (specimen) Cervix uteri structure / Unknown 08/04/2015 2:56 PM EST Sanjuana Shelia ANP LAB - NO BLOOD DRAW Final Res ult [facility] [address] [place] [address], from Last 3 Months or Most Recently Relevant to Health Maintenance Insurance [employer] Member Subscriber Plan / Payer (Ef fective 2014-Present) Name:eMlba Knox Relation to Subscriber:Self Name:MELBA KNOX Payer ID:[id number] Type:Indemnity Address: [address] [place] [address] [place] Care Teams Hair Clipper Power Relationship Specialty Start Date End Date Laury Shine FNP [address] [place] [address] PCP - General Family Medicine, GASTROENTEROLOGY MANAGER 09/22/16
--- OUTSIDE RECORDS SUMMARY | 2024-12-10 09:24 | XMS_ITS | Patient Health Record ---
Author Organization [facility] Address [address] [place] [address] Support Name Relationship Address Phone ABILIOJOEAN Guarantor Unknown [phone] Reason For Referral No Information Medications Medication SIG (Take, Route, Frequency, Duration) Notes Start Date End Date Status [place] Carbonate 100MG 1 ORAL three pricilla es daily for -3 [facility] 05/15/2012 Active LaMICtal 100MG 1 ORAL daily for -3 [facility] 05/15/2012 Active Immunizations Vaccine Route Administration Date Status Comme nts Influenza, live, intranasal Intramuscular 05/15/2012 Pendi ng Problems Problem Type SNOMED Code ICD Code Onset Dates Problem Status W/U Status Risk Notes Problem Chronic bipolar I disorder, most recent episode depressed (disorder) (95410407) Bipolar I disorder, most recent episode (or current) depressed, unspecified (296.50) Active confirmed Major Problem Migraine (disorder) (54422305) Migraine, unspecified without mention of intractable migraine without mention of status migrainosus (346.90) Active confirmed Major Problem Gynecological examination normal (083859748757342) Routine gynecological examination (V72.31) Active confirmed Diag Problem Counseling (011211532) Counseling NOS (V65.40) Active confirmed Diag Plan Of Treatment No Information Insurance Providers Payer Name Payer Address Payer Phone Subscriber Number Group Number Insured Name Patient Relationship to Insured Coverage Start Date Coverage End Date [facility] MEDICARE PPO [address] [place] [address] [id number] SACHIN KNOX Self - patient is the insured
== END 2024-12-10 08:54 | disposition home or self-care (01) ==
LOC: HO.MAMMO 08:53
PROVIDERS: PCP Nurse Practitioner Family; Visit Provider Nurse Practitioner Family
DX: Z12.31 Encounter for screening mammogram for malignant neoplasm of breast (principal)
CPT/HCPCS: 77063; 77067

== ENCOUNTER → 2024-12-10 09:15 | Outpatient (BNV) | payer BC, SELFPAY | PROVIDERS: PCP Nurse Practitioner Family; Visit Provider Internal Medicine | DX: Z12.31 Encounter for screening mammogram for malignant neoplasm of breast (principal) | CPT/HCPCS: 77063; 77067 ==

== ENCOUNTER 2025-02-04 08:49 | Outpatient (REF) | payer BC, SELFPAY ==
--- OUTSIDE RECORDS SUMMARY | 2025-02-04 09:10 | XMS_ITS | Clinical Summary ---
Author Organization [facility] Address [address] [place] [address] Care Team Providers Care Tc Operator Name Role Phone Laury Shine DANIELA Primary Care Provider [phone] Source Comments PLEASE NOTE, if this patient [...] right breast 06/18/2019 Overview (06/18/2019): As per [facility] no mammographic evidence [...] form 03/2016- 04/06/16:Saw Dr. Jaden Gonzales, Neuro [phone]- Per neuro note- - doing MRI 03/2016- follow up 6 weeks- DUE approx 05/18 MELBA KNOX :1965 Result type:MRI Brain W/O ContrastResult date:04/19/2016 15:39Result status:Auth (Verified)Result title:MRI Brain W/O Contrast Performed by:-- Verified by:Brock Alejandre MD on April 20, 2016 16:32Encounter info:[id number], [facility], [facility], 04/19/2016 - Reason For Exam RESULT: MRI Brain W/O Contrast [facility] VISIT NUMBER :[id number] Patient Name : Melba Knox Date of : 1965 Date of Exam : 04/19/2016 Referring Physician : CHAMP GONZALES [address] [place] [address] Dr/Gokul [address] [place] [address] Exam : MR - BRAIN (C-) CPT 05749 - Room Description : [facility] Espr 1.5 Technique : Sag T1, Ax T2, Ax T2 Flair, Ax DWI, Ax SWI, Sag Flair Final Report HISTORY: Demyelinating disease. COMPARISON: 11/18/2010 performed at [facility] FINDINGS: Multiple supratentorial T2 hyperintense white [...] repeat 2021 H/O mammogram 08/04/2015 Overview (03/11/2018): [facility] 08/11/15 bilat dx mammo done-birads2, return to [...] (06/02/2016): Emergent eye eval- 05/16/16- PV eye- [phone]- Retinal hemorrhage OS- - likely resolve on its own 04/06/[address] Kyra marquis MD Neuro- assessment- bipolar,migraine with aura,pineal gland cyst,ORTEGA,ptosis, dymelinating dz- tx start topiramate 50mg po BID, keep migraine diary, and do MRI no contrast for demyelinating dz [phone] Pineal gland cyst 05/27/2013 Overview (05/03/2016): Had [...] Problem Noted Date Diagnosed Date Resolved Date [id number]/23/16 2016 08/16/2018 Immunizations Immunization Administration Dates Next Due HEP A-HEP B ([place]) 2016 Hep A, adult 09/30/2015 Hep B, [...] Sister 1 Alive has 3, 1 in [facility] home is 60 yr old, 1 passsed [...] 2017 Pap Smear 08/04/2018 08/04/2015, 08/04/2015 Annual Wellness (Adult): Indicated (All Coverage) 08/16/2019 08/16/2018, 12/11/2016, 2016, Additional history exists Diabetes Screening 2019 2016, 0 05/03/2016, 08/23/2015, Additional history exists Breast Cancer Screening (Mammogram) 06/09/2020 06/09/2019, 10/09/2016, 08/11/2015 Cervical Cancer Screening 08/04/2020 Pap + HPV 08/04/2020 08/04/2015 Lipid Screening 08/23/2020 08/23/2015 Hypertension Screening (#1) 03/21/2022 [id number]-92 ( season) 2024 021, 11/26/2020 Alcohol and Drug Screen 08/27/2024 09/24/19 20, 06/03/2019, 02/18/2018, Additional history exists Depression Annual Screen 08/27/2024 020, 02/18/2018, 04/02/2017 (Managed by Outside Provider) Imm-Influenza (Season Ended) 2025 05/27/2013 HIV Screening Completed 2016 Hepatitis C Screening [...] examination for venereal disease GLUCOSE, BLOOD (POCT) 87816 Routine 2016 3:27 PM EST Palpitation Dizzy [...] Impressions 06/09/2019 10:12 AM EDT As per [facility] no mammographic evidence [...] EST) HEPATITIS B SURFACE ANTIBODY NEGATIVE NEGATIVE [facility] HEPATITIS B SURFACE ANTIGEN NEGATIVE NEGATIVE [facility] HEPATITIS C VIRUS DIAGNOSTIC NEGATIVE NEGATIVE [facility] HEPATITIS B CORE ANTIBODY NEGATIVE NEGATIVE [facility] HEPATITIS A ANTIBODY TOTAL NEGATIVE NEGATIVE [facility] Blood specimen (specimen) Blood / Unknown 2016 3:52 PM EST 2016 4:04 PM EST Narrative [facility] - 2016 6:36 PM EST [facility] [address] [place] [address] BASELINE:1548 SAMPLE:1604 PT ID [id number] ORD# [id number] us Sanjuana TIPTON LAB - BLOOD DRAW Edited Resul t - Final Performing Organization Address City/[facility] Co de Phone Number [address] [address], * HIV-1 & HIV-2 ANTIBODIES (2016 3:52 PM EST) HIV 1 AND 2 ANTIBODY SCREEN NEGATIVE NEGATIVE [facility] Comment: This assay is a 4th [...] PM EST 2016 4:04 PM EST Narrative [facility] - 2016 7:06 PM EST [facility] [address] [place] [address] BASELINE:1548 SAMPLE:1604 PT ID [id number] ORD# [id number] Sanjuana TIPTON LAB - BLOOD DRAW Final Result Performing Organization Address [facility] Co de Phone Number [address] [place] [address], * GLUCOSE, BLOOD (POCT) 62700 (2016 3:27 PM EST) GLUCOSE 130 65 - 139 mg/dL [facility] POCT Blood specimen (specimen) Blood / Unknown 2016 3:27 PM EST Sanjuana Bass ANP LAB - BLOOD DRAW Final Result [facility] POCT * (ABNORMAL) LIPID PANEL (08/23/2015 8:24 AM EST) CHOLESTEROL 195 0 - 200 mg/dL [facility] TRIGLYCERIDES 124 0 - 150 mg/dL [facility] HDL CHOLESTEROL 56 >40 mg/dL [facility] LDL CALCULATED 115(H) 0 - 100 mg/dL [facility] TC-HDLC RATIO 3.5 0 - 4.4 mg/dL [facility] Blood specimen (specimen) Blood / Unknown 08/23/2015 8:24 AM EST 08/23/2015 8:24 AM EST Narrative [facility] - 08/23/2015 11:11 AM EST [facility] [address] [place] [address] PT ID [id number] ORD# [id number] Kerry Lamar INTELLIGENCE INTERN LAB - BLOOD DRAW Edited Result - Final [facility] [address] [place] [address], * PAP, LIQUID BASED (08/04/2015 2:56 PM EST) PAP NIL with ECc HPV neg NORMAL - ABNORMAL [facility] GC/CHLAMYDIA neg [facility] Specimen from uterine cervix (specimen) Cervix uteri structure / Unknown 08/04/2015 2:56 PM EST us Sanjuana Bass ANP LAB - PATHOLOGY AND CYTOLOGY AMBULATORY Final Result [facility] [address] [place] [address], from Last 3 Months or Most Recently Relevant to Health Maintenance Insurance [employer]UE [employer]/ [place] Member Subscriber Plan / Payer (Ef fective 2014-Present) Name:Melba Knox Relation to Subscriber:Self Name:MELBA KNOX Payer ID:[id number] (NAIC) Type:Indemnity Address: [facility] [address] MEDICAID Care Teams Tc Operator Relationship Specialty Start Date End Date Laury Shine FNP [address] [place] [address] PCP - General Family Medicine, INTELLIGENCE INTERN 09/22/16
[2025-02-04 10:44] LABS: Cholesterol 216 mg/dL (<200); HDL Cholesterol 42 mg/dL (>40); LDL Cholesterol Calculated 140 mg/dL (<100); Triglycerides 170 mg/dL (<150)
== END 2025-02-04 08:50 | disposition home or self-care (01) ==
LOC: HO.HMGCLDS 08:49
PROVIDERS: PCP Nurse Practitioner Family; Visit Provider Nurse Practitioner Family
DX: E78.00 Pure hypercholesterolemia, unspecified (principal)
CPT/HCPCS: 36415; 80061

== ENCOUNTER 2025-02-09 08:20 | Outpatient (AMB) | payer BC, SELFPAY ==
--- NOTE | 2025-02-09 08:23 | MHC.PC.OV ---
Vital Signs 02/09/25 08:29 Height 5 ft 7 in Weight 209 lb 8 oz BMI 32.8 BP 131/73 Blood Pressure Location Rt brachial Position Sitting Respiration 16 Pulse 88 Pulse Source Pulse Oximeter Temp 98.4 F Temp Source Oral Pulse Oximetry (%) 97 Oxygen Delivery Method Room Air Intake Visit Reasons: HYPERCOLESTROLIMA AND HTN Intake Note: patient here for follow up on Hypercolesterolemia and HTN Rotary Operator Required: No Is last menstrual period known: No Post menopausal: No Patient : No Allergies Sulfa (Sulfonamide Antibiotics) [SULFA (SULFONAMIDE ANTIBIOTICS)] Allergy (Unknown, Verified 02/09/25 08:37) RASH,ITCHY Medication List - Last Reconciled 02/09/25 by Shirley Batres CNP amitriptyline 25 mg PO BEDTIME lisinopril 10 mg PO DAILY meclizine 25 mg PO Q8H PRN sertraline 25 mg PO DAILY sumatriptan succinate mg PO DIRECTED topiramate 100 mg PO BEDTIME Tobacco use date assessed: 02/09/25 Dental Screening Dental Screen Date: 02/09/25 Did you have a dental visit in the last 12 months?: No Did you have a dental problem in the last 6 months where you did not have access to dental care?: No Was dental information given to patient?: No (already gave paper work) HPI HPI Comments History of Present Illness Details 59-year-old female presents for hypercholesterolemia and hypertension follow-up. She admits to taking her medications as prescribed without adverse reactions. She made minimal improvement with her diet and has been eating less red meat and cheese. She walks regularly. She offers no complaints and denies acute symptoms at this time. [facility] Medical History (Updated 02/09/25 @ 08:38 by Shirley Batres CNP) Bipolar 1 disorder Depression Anxiety Vertigo Swelling of both ankles Opioid abuse, in remission Cataract, left eye Migraine Surgical History (Updated 11/05/24 @ 13:23 by Olya Lowe MA) H/O tubal ligation H/O eye surgery S/P tonsillectomy Family History (Updated 11/05/24 @ 13:18 by Olya Lowe MA) Father Alcohol abuse Sister Alcohol abuse FH: mental illness High blood pressure Brother Substance abuse High blood pressure Diabetes Mother High blood pressure Skin cancer Colon cancer Kidney disease Social History Housing: House Patient Tobacco Use Status: Current everyday Tobacco user Cigarettes Per Day: 10 Years Smoked: 20 e-Cigarette/Vaping Use: Never Used Second Hand Smoke Exposure: No service: No Current occupational status: employed 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 Current occupational exposures/hazards: No Cognitive needs: No Hearing needs: No Vision needs: Yes Questionnaire Thrive Questionnaire Date Thrive assessed: 10/29/24 I am a: Patient What is your living situation today?: I have a steady place to live Within the past 12 months, did the food you bought not last and you didn't have the money to get more?: Never true Within the past 12 months, did you worry whether your food would run out before you got money to buy more?: Never true Do you have trouble paying for medicines?: No Do you have trouble getting transportation to medical appointments?: No Do you have trouble paying your heating and electricity bill?: No Do you have trouble taking care of your child, family member or friend?: No Do you have trouble with day-to-day activities such as bathing, preparing meals, shopping, managing finances, etc.?: No Are you currently unemployed and looking for a job?: No Are you interested in more education?: No Please select the resources that you would like help with: None THRIVE Score: 0 HAMMAD-7 AMB Questionnaire HAMMAD-7 Date HAMMAD - 7 assessed: 11/05/24 Source: Developed by Drs. Raad Willard, Herminia Garcia, Al Finney and colleagues, with an educational mary from [employer]. Review of Systems Const Details: Const Denies chills, Denies fatigue, Denies fever(s), Denies headache(s) and Denies weakness ENT Denies dizziness and Denies headache(s) Card Denies chest pain, Denies lightheadedness, Denies dyspnea and Denies other (Palpitations) Resp Denies cough, Denies dyspnea, Denies wheezing and Denies other ( shortness of breath) GI Denies abdominal pain, Denies melena, Denies hematochezia, Denies change in bowel habits, Denies dyspepsia and Denies nausea Denies hematuria and Denies dysuria Musc Denies abnormal gait, Denies myalgias, Denies arthralgias, Denies numbness and Denies tingling Skin/Breast Denies rash, Denies unusual bruising and Denies wounds Neuro Denies abnormal gait, Denies dizziness, Denies headache(s), Denies memory loss, Denies numbness, Denies Sensory deficit (Neuro), Denies tingling and Denies weakness Psych Denies anxiety, Denies depression, Denies memory loss Endo Denies cold intolerance, Denies fatigue, Denies heat intolerance, Denies polydipsia and Denies polyuria Aller/Immun Denies wheezing Physical exam (Primary Care) Vital Signs: Last Vital Signs Temp 98.4 F 02/09/25 08:29 Pulse 88 02/09/25 08:29 Resp 16 02/09/25 08:29 BP 131/73 02/09/25 08:29 Pulse Ox 97 02/09/25 08:29 Oxygen Delivery Method Room Air 02/09/25 08:29 BMI result Body Mass Index 32.8 Tobacco/Smoking Status: Tobacco use Status Tobacco use date assessed 02/09/25 02/09/25 08:32 Patient Tobacco Use Status Current everyday Tobacco 02/09/25 08:25 e-Cigarette/Vaping Use Never Used 02/09/25 08:25 Thrive Assessment: Date of Thrive Assessment Date Thrive assessed 10/29/24 02/09/25 08:25 Const Other: General: no acute distress and well developed Nutritional Appearance: well nourished Orientation/consciousness: patient oriented x3 HENMT Head: Yes normocephalic and Yes atraumatic Eyes General: appearance normal, both eyes and all related structures Pupils: Equal, round and reactive pupils present EOM: EOMs intact bilaterally Resp Effort & Inspection: normal respiratory effort Auscultation: clear to auscultation bilaterally Cardio Rate: regular rate Rhythm: regular rhythm Heart sounds: S1 normal heart sound present, S2 normal heart sound present, no gallops, no murmurs and no rubs GI Palpation (GI): No Abdominal aortic bruit present, Soft to palpation, nontender, No hepatosplenomegaly present and No Rebound tenderness present Auscultation: normal bowel sounds General: Yes no CVA tenderness Back/Spine/Pelvis Back: no CVA tenderness Cervical Spine: cervical ROM normal and No Cervical spine tenderness Thoracic/Lumbar Spine: thoraco-lumbar ROM normal, No pain with thoraco-lumbar ROM, No thoracic spinal tenderness and No lumbar spinal tenderness Extrem General: Yes normal to inspection, No edema and No calf tenderness Skin General: warm and dry. Normal skin color. Normal skin turgor Neuro General: patient oriented x3, gait normal and no focal neuro deficit Cranial nerves: Yes Equal, round and reactive pupils present Cognition (Neuro): normal cognition Gait exam (Neuro): Normal gait present Sensory Exam: No Sensory deficit (Neuro) Psych Appearance: grossly normal Affect: normal affect Attitude: cooperative Thought process: Normal thought process present Coding Level of Care Code Est Pt Level 4 (38756) Diagnoses Essential hypertension I10 Hyperlipidemia E78.5 Assessment & Plan Assessment & Plan (1) Essential hypertension: Code(s): I10 - Essential (primary) hypertension Category: Medical Plan: Blood pressure today is 131/73, within goal of less than 140/90. Continue current treatment regimen. Low-sodium diet encouraged. Will continue to monitor. Verbalized understanding and agreed with the plan. (2) Hyperlipidemia: Code(s): E78.5 - Hyperlipidemia, unspecified Category: Medical Plan: Recent triglycerides, total cholesterol, and LDL levels are elevated, 170, 216, and 140 respectively; previous levels were 128, 207, and 139 respectively. Recent HDL levels 42. She made minimal improvement with her diet and has been eating less red meat and cheese. She walks regularly. Will start atorvastatin 10 mg daily at bedtime; advised to take as prescribed. Instructed on the risks, benefits, and potential adverse reactions of the medication. Advised to limit foods high in saturated fat and avoid foods high in trans fat. Routine exercise encouraged. Fast for 10-12 hours, may drink water, and perform lipid panel blood work 2-3 days before next visit. Follow-up for telehealth visit in 2 months. Return sooner with symptoms or concerns. Verbalized understanding and agreed with the treatment plan. Orders: Orders Lipid Panel 2 Months E78.5 - Hyperlipidemia, unspecified Medications: New atorvastatin 10 mg PO BEDTIME 30 days 30 tabs 3RF
[2025-02-09 08:29] VITALS: BP 131/73; PULSE 88; RESP 16; TEMP 36.9; O2SAT 97; BMI 32.8
--- OUTSIDE RECORDS SUMMARY | 2025-02-09 08:40 | XMS_ITS | Clinical Summary ---
Author Organization [facility] Address [address] [place] [address] Care Team Providers Care Transit Operator Name Role Phone Laury Shine DANIELA Primary Care Provider [phone] Source Comments PLEASE NOTE, if this patient [...] right breast 06/18/2019 Overview (06/18/2019): As per [facility] no mammographic [...] form 03/2016- 04/06/16:Saw Dr. Jaden Gonzales, Neuro [phone]- Per neuro note- - doing MRI 03/2016- follow up 6 weeks- DUE approx 05/18 MELBA KNOX :1965 Result type:MRI Brain W/O ContrastResult date:04/19/2016 15:39Result status:Auth (Verified)Result title:MRI Brain W/O Contrast Performed by:-- Verified by:Brock Alejandre MD on April 20, 2016 16:32Encounter info:[id number], [facility], 04/19/2016 - Reason For Exam RESULT: MRI Brain W/O Contrast [facility] VISIT NUMBER :[id number] Patient Name : Melba Knox Date of : 1965 Date of Exam : 04/19/2016 Referring Physician : CHAMP GONZALES [address] [place] [address] Dr/Gokul [address] [place] [address] Exam : MR - BRAIN (C-) CPT 81613 - Room Description : [facility] Espr 1.5 Technique : Sag T1, Ax T2, Ax T2 Flair, Ax DWI, Ax SWI, Sag Flair Final Report HISTORY: Demyelinating disease. COMPARISON: 11/18/2010 performed at [facility] FINDINGS: Multiple supratentorial T2 hyperintense white [...] repeat 2021 H/O mammogram 08/04/2015 Overview (03/11/2018): [facility] 08/11/15 bilat dx mammo done-birads2, [...] (06/02/2016): Emergent eye eval- 05/16/16- [facility]- [phone]- Retinal hemorrhage OS- - likely resolve on its own 04/06/[address] 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 Overview (05/03/2016): Had [...] Problem Noted Date Diagnosed Date Resolved Date NYMEODKI83/23/16 2016 08/16/2018 Immunizations Immunization Administration Dates Next [...] Sister 1 Alive has 3, 1 in [facility] is 60 yr old, 1 passsed [...] Screening 08/23/2020 08/23/2015 Hypertension Screening (#1) 03/21/2022 [id number] ( season) 2024 021, 11/26/2020 Alcohol and [...] examination for venereal disease GLUCOSE, BLOOD (POCT) [id number] Routine 2016 3:27 PM EST Palpitation Dizzy [...] Impressions 06/09/2019 10:12 AM EDT As per [facility] breast [facility] no mammographic [...] EST) HEPATITIS B SURFACE ANTIBODY NEGATIVE NEGATIVE [facility] HEPATITIS B SURFACE ANTIGEN NEGATIVE NEGATIVE [facility] HEPATITIS C VIRUS DIAGNOSTIC NEGATIVE NEGATIVE [facility] HEPATITIS B CORE ANTIBODY NEGATIVE NEGATIVE [facility] HEPATITIS A ANTIBODY TOTAL NEGATIVE NEGATIVE [facility] Blood specimen (specimen) Blood / Unknown 2016 3:52 PM EST 2016 4:04 PM EST Narrative [facility] - 2016 6:36 PM EST [facility] [address] [place] [address] BASELINE:1548 SAMPLE:1604 PT ID [id number] ORD# [id number] us Sanjuana [facility] - BLOOD DRAW Edited Resul t - Final Performing Organization Address [facility] Co de Phone Number [address] [address], * HIV-1 & HIV-2 ANTIBODIES (2016 3:52 PM EST) HIV 1 AND 2 ANTIBODY SCREEN NEGATIVE NEGATIVE [facility] Comment: This assay is a [...] PM EST 2016 4:04 PM EST Narrative [facility] - 2016 7:06 PM EST [facility] [address] [place] [address] BASELINE:1548 SAMPLE:1604 PT ID [id number] ORD# [id number] [facility] - BLOOD DRAW Final Result Performing Organization Address [facility] Co de Phone Number [address] [place] [address], * GLUCOSE, BLOOD (POCT) [id number] (2016 3:27 PM EST) GLUCOSE 130 65 - 139 mg/dL [facility] OFFICE POCT Blood specimen (specimen) Blood / Unknown 2016 3:27 PM EST Sanjuana Bass ANP [facility] - BLOOD DRAW Final Result [facility] POCT * (ABNORMAL) LIPID PANEL (08/23/2015 8:24 AM EST) CHOLESTEROL 195 0 - 200 mg/dL [facility] TRIGLYCERIDES 124 0 - 150 mg/dL [facility] HDL CHOLESTEROL 56 >40 mg/dL [facility] LDL CALCULATED 115(H) 0 - 100 mg/dL [facility] TC-HDLC RATIO 3.5 0 - 4.4 mg/dL [facility] Blood specimen (specimen) Blood / Unknown 08/23/2015 8:24 AM EST 08/23/2015 8:24 AM EST Narrative [facility] - 08/23/2015 11:11 AM EST [employer] [address] [place] [address] PT ID [id number] ORD# [id number] Kerry Lamar FRAMEWORK DEVELOPER LAB - BLOOD DRAW Edited Result - Final [facility] [address] [place] [address], * PAP, LIQUID BASED (08/04/2015 2:56 PM EST) PAP NIL with ECc HPV neg NORMAL - ABNORMAL [facility] GC/CHLAMYDIA neg [facility] Specimen from uterine cervix (specimen) Cervix uteri structure / Unknown 08/04/2015 2:56 PM EST us Sanjuana Bass [facility] - PATHOLOGY AND CYTOLOGY AMBULATORY Final Result [facility] [address] [place] [address], from Last 3 Months or Most Recently Relevant to Health Maintenance Insurance [employer]/ [place] Member Subscriber Plan / Payer (Ef fective 2014-Present) Name:Melba Knox Relation to Subscriber:Self Name:MELBA KNOX Payer ID:[id number] (NAIC) Type:Indemnity Address: [facility] [address] MEDICAID Care Teams Transit Operator Relationship Specialty Start Date End Date Laury Shine FNP [address] [place] [address] PCP - General Family Medicine, FRAMEWORK DEVELOPER 09/22/16
== END 2025-02-09 08:48 | disposition home or self-care (01) ==
LOC: HO.HMCFM 08:20
PROVIDERS: PCP Nurse Practitioner Family; Visit Provider Nurse Practitioner Family
DX: I10 Essential (primary) hypertension (principal); E78.5 Hyperlipidemia, unspecified

== ENCOUNTER → 2025-02-09 08:20 | Outpatient (BNVA) | payer BC, SELFPAY | PROVIDERS: PCP Nurse Practitioner Family; Visit Provider Nurse Practitioner Family ==

== ENCOUNTER 2025-03-26 08:09 | Outpatient (AMB) | payer BC, SELFPAY ==
--- NOTE | 2025-03-26 08:14 | MHC.OFFVIS ---
Vital Signs 03/26/25 08:21 Height 5 ft 7 in Weight 205 lb BMI 32.1 BP 126/76 Intake Visit Reasons: DOLLYMAN annual exam/Internal Referral Intake Note: Per patient last pap smear done 6 years ago at [facility]. No concerns today. Field Operations Coordinator: Field Operations Coordinator Present (JACKIE Dillon) Accompanied by: Self / Same As Patient Allergies Sulfa (Sulfonamide Antibiotics) (SULFA (SULFONAMIDE ANTIBIOTICS)) Allergy (Unknown, Verified 03/26/25 08:19) RASH,ITCHY Is last menstrual period known: No Post menopausal: Yes Patient : No HPI Comments Details: Patient is a postmenopausal woman presenting for her new patient annual gutter mouth cutter examination. Deputy Director Of Nursing concerns: none. Currently not sexually active. Denies any vaginal dryness or irritation. STI testing offered; she declines. Attempting to eat a healthy diet with calcium and vitamin D and stays active with exercise-floor, chair, andyard words. Last pap smear; 2018, negative. Last mammogram; 2024. Colonoscopy is UTD. Denies any family history of breast or ovarian. FH colon cancer. [facility] Medical History Bipolar 1 disorder Depression Anxiety Vertigo Swelling of both ankles Opioid abuse, in remission Cataract, left eye Migraine Surgical History H/O tubal ligation H/O eye surgery S/P tonsillectomy Family History Father Alcohol abuse Sister Alcohol abuse FH: mental illness High blood pressure Brother Substance abuse High blood pressure Diabetes Mother High blood pressure Skin cancer Colon cancer Kidney disease Social History Housing: House Patient Tobacco Use Status: Current everyday Tobacco user Cigarettes Per Day: 10 Years Smoked: 20 e-Cigarette/Vaping Use: Never Used Second Hand Smoke Exposure: No Patient : No service: No Current occupational status: employed 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 Current occupational exposures/hazards: No Cognitive needs: No Hearing needs: No Vision needs: Yes Female Reproductive History Menstrual Age of Menarche: 13 control method: permanent sterilization Total pregnancies: 5 Full term: 4 History of abnormal pap smear: No Date of Mammogram: 12/10/24 (bi rad 2) Review of Systems Const All systems reviewed & are unremarkable except as noted in HPI and below Reports as per HPI Eyes Reports no additional complaints ENT Reports no additional complaints Card Reports no additional complaints Resp Reports no additional complaints GI Reports as per HPI and Reports no additional complaints Reports as per HPI Musc Reports no additional complaints Skin/Breast Reports as per HPI Neuro Reports no additional complaints Psych Reports no additional complaints Endo Reports no additional complaints Brett/Lymph Reports no additional complaints Aller/Immun Reports no additional complaints Physical Exam Vital Signs: Last Vital Signs BP 126/76 03/26/25 08:21 BMI result Body Mass Index 32.1 Const General: cooperative, healthy appearing, no acute distress, well developed and alert Orientation/consciousness: patient oriented x3 HEENT Head: Yes normal to inspection Eyes General: appearance normal, both eyes and all related structures Neck Neck: Yes normal visual inspection Thyroid: Thyroid normal Chest Chest palpation & inspection: normal inspection of the chest and other (no puckering, dimpling, peau de orange, retraction, discharge, masses) Breast/axilla inspection: normal inspection of the breasts Breast/axilla palpation: normal palpation of the breasts Resp Effort & Inspection: normal respiratory effort GI Inspection: Yes normal to inspection Palpation (GI): Soft to palpation Rectal Exam - Female: deferred General: Yes bladder normal to palpation External Female Exam: normal external appearance and normal appearance of the urethra Speculum Exam - Vagina: normal appearance of the vagina, normal palpation, normal vaginal discharge and vagina atrophic Speculum Exam - Cervix: normal appearance of the cervix, normal palpation and Other cervical findings present (Atrophic changes bled slightly with Pap) Bimanual exam- vagina & uterus: normal bimanual exam, normal palpation, uterine size normal, bladder normal to palpation, normal palpation and non-tender Bimanual Exam- Adnexa, other: no masses Skin General skin exam: no rashes or lesions noted Rashes: no rashes Neuro General: patient oriented x3 Cognition (Neuro): normal cognition Extrem General: Yes normal to inspection Psych Attitude: cooperative Thought process: Normal thought process present Assessment & Plan Assessment & Plan (1) Encounter for well woman exam with routine gynecological exam: Code(s): Z01.419 - Encounter for gynecological examination (general) (routine) without abnormal findings Category: Medical Plan: Discussed: Current recommendations for pap smears per ASCCP guidelines. Breast awareness, periodic self breast exams and yearly mammogram. Maintain a healthy lifestyle, well balanced diet including Calcium 1,200 mg and Vitamin D 600 IU daily, and routine exercise. Contact the office with any postmenopausal bleeding. Patient verbalizes understanding and agrees to the plan of care. She was given opportunity to ask questions and all questions were answered to the best of my ability. RTO in 1 year for annual gutter mouth cutter exam. This note is constructed using voice recognition software. While every effort has been made to ensure accuracy, art instructor errors may have been included. (2) Pap smear for cervical cancer screening: Code(s): Z12.4 - Encounter for screening for malignant neoplasm of cervix Category: Medical Plan Pap obtained. Await results for final plan of care. Coding Level of Care Code New Pt Prev Care 40-64y(05016) Diagnoses Encounter for well woman exam with routine gynecological exam Z01.419 Pap smear for cervical cancer screening Z12.4
--- OUTSIDE RECORDS SUMMARY | 2025-03-26 08:16 | XMS_ITS | Clinical Summary ---
Author Organization [facility] Address [address] [place] [address] Care Team Providers Care Freight Claim Investigator Name Role Phone Laury Shine DANIELA Primary Care Provider [phone] Source Comments PLEASE NOTE, if this patient [...] form 03/2016- 04/06/16:Saw Dr. Jaden Gonzales, Neuro [phone]- Per neuro note- - doing MRI 03/2016- follow up 6 weeks- DUE approx 05/18 MELBA KNOX :1965 Result type:MRI Brain W/O ContrastResult date:04/19/2016 15:39Result status:Auth (Verified)Result title:MRI Brain W/O Contrast Performed by:-- Verified by:Brock Alejandre MD on April 20, 2016 16:32Encounter info:[id number], [facility], [facility], 04/19/2016 - Reason For Exam RESULT: MRI Brain W/O Contrast [facility] VISIT NUMBER :[id number] Patient Name : Melba Knox Date of : 1965 Date of Exam : 04/19/2016 Referring Physician : CHAMP GONZALES [address] [place] [address] Dr/Gokul [address] [place] [address] Exam : MR - BRAIN (C-) CPT 08846 - Room Description : [facility] Espr 1.5 Technique : Sag T1, Ax T2, Ax T2 Flair, Ax DWI, Ax SWI, Sag Flair Final Report HISTORY: Demyelinating disease. COMPARISON: 11/18/2010 performed at [facility] FINDINGS: Multiple supratentorial T2 hyperintense white [...] repeat 2021 H/O mammogram 08/04/2015 Overview (03/11/2018): [facility] 08/11/15 bilat dx mammo done-birads2, return [...] disorder 05/27/2013 Overview (2016): Followed by Eric xiao, has rxer- and counseling Migraine with aura 05/27/2013 Overview (06/02/2016): Emergent eye eval- 05/16/16- PV eye- [phone]- Retinal hemorrhage OS- - likely resolve on its own 04/06/[address] 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 Overview (05/03/2016): Had [...] Problem Noted Date Diagnosed Date Resolved Date LWUBIOZA30/23/16 2016 08/16/2018 Immunizations Immunization Administration Dates Next Due HEP A-HEP B ([place]) 2016 Hep A, adult 09/30/2015 Hep B, Adult/Adol (HNHMGYR-I-GHMAJ/RECOMBIVAX-ADULT) 10/29/2015,09/30/2015 INFLUENZA, SEASONAL, INJECTABLE 05/27/2013 INFLUENZA, SEASONAL, INJECTA [...] Sister 1 Alive has 3, 1 [facility] is 62 yr old, 1 [...] 99 03/21/2021 10:13 AM EDT Temperature 37.2 C (98.9 F) 03/21/2021 10:13 AM EDT Respiratory Rate 16 03/21/2021 10:13 AM EDT [...] 1965 Imm-DTaP/Tdap/Td (1 - Tdap) 1986 Imm-Pneumococcal 50+ (1 of 2 - PCV) 1986 CT [...] Screening 08/23/2020 08/23/2015 Hypertension Screening (#1) 03/21/2022 Vxt-EMJKX-50 ( season) 2024 021, 11/26/2020 Alcohol and Drug Screen 08/27/2024 09/24/19 20, 06/03/2019, 02/18/2018, Additional history exists Depression Annual Screen 08/27/2024 020, 02/18/2018, 04/02/2017 (Managed by Outside Provider) Imm-Influenza (#1) 2025 05/27/2013 HIV Screening Completed 2016 Hepatitis [...] examination for venereal disease GLUCOSE, BLOOD (POCT) [id number] Routine 2016 3:27 PM EST Palpitation Dizzy [...] EST) HEPATITIS B SURFACE ANTIBODY NEGATIVE NEGATIVE [facility] HEPATITIS B SURFACE ANTIGEN NEGATIVE NEGATIVE [facility] HEPATITIS C VIRUS DIAGNOSTIC NEGATIVE NEGATIVE [facility] HEPATITIS B CORE ANTIBODY NEGATIVE NEGATIVE [facility] HEPATITIS A ANTIBODY TOTAL NEGATIVE NEGATIVE [facility] Blood specimen (specimen) Blood / Unknown 2016 3:52 PM EST 2016 4:04 PM EST Narrative [facility] - 2016 6:36 PM EST [employer] [address] [place] [address] BASELINE:1548 SAMPLE:1604 PT ID [id number] ORD# [id number] us Sanjuana TIPTON LAB - BLOOD DRAW Edited Resul t - Final Performing Organization Address [facility] Co de Phone Number [address] [address], * HIV-1 & HIV-2 ANTIBODIES (2016 3:52 PM EST) HIV 1 AND 2 ANTIBODY SCREEN NEGATIVE NEGATIVE [facility] Comment: This assay is a 4th generation assay allowing for earlier detection of HIV infection by detecting the presence of the HIV-1 p24 antigen as well as the traditional antibodies to HIV type 1 (including group O) and type 2. Use of a 4th generation assay is the current CDC recommendation for HIV screening. Blood specimen (specimen) Blood / Unknown 2016 3:52 PM EST 2016 4:04 PM EST [facility] - 2016 7:06 PM EST Bee Shield [address] [place] [address] BASELINE:1548 SAMPLE:1604 PT ID [id number] ORD# [id number] Sanjuana Bass ANP LAB - BLOOD DRAW Final Result Performing Organization Address [facility] Co de Phone Number [address] [place] [address], * GLUCOSE, BLOOD (POCT) [id number] (2016 3:27 PM EST) GLUCOSE 130 65 - 139 mg/dL [facility] OFFICE POCT Blood specimen (specimen) Blood / Unknown 2016 3:27 PM EST Sanjuana Bass ANP LAB - BLOOD DRAW Final Result [facility] POCT * (ABNORMAL) LIPID PANEL (08/23/2015 8:24 AM EST) CHOLESTEROL 195 0 - 200 mg/dL [facility] TRIGLYCERIDES 124 0 - 150 mg/dL [facility] HDL CHOLESTEROL 56 >40 mg/dL [facility] LDL CALCULATED 115(H) 0 - 100 mg/dL [facility] TC-HDLC RATIO 3.5 0 - 4.4 mg/dL [facility] Blood specimen (specimen) Blood / Unknown 08/23/2015 8:24 AM EST 08/23/2015 8:24 AM EST Narrative [facility] - 08/23/2015 11:11 AM EST [employer] [address] [place] [address] PT ID [id number] ORD# [id number] Kerry Lamar STORE PERSON LAB - BLOOD DRAW Edited Result - Final [facility] [address] [place] [address], * PAP, LIQUID BASED (08/04/2015 2:56 PM EST) PAP NIL with ECc HPV neg NORMAL - ABNORMAL [facility] GC/CHLAMYDIA neg [facility] Specimen from uterine cervix (specimen) Cervix uteri structure / Unknown 08/04/2015 2:56 PM EST us Sanjuana Bass ANP LAB - PATHOLOGY AND CYTOLOGY AMBULATORY Final Result [facility] [address] [place] [address], from Last 3 Months or Most Recently Relevant to Health Maintenance Insurance BLUE CROSS/ [place] Member Subscriber Plan / Payer (Ef fective 2014-Present) Name:Melba Knox Relation to Subscriber:Self Name:MELBA KNOX Payer ID:[id number] (NAIC) Type:Indemnity Address: [facility] [address] MEDICAID Care Teams Freight Claim Investigator Relationship Specialty Start Date End Date Laury Shine FNP [address] [place] [address] PCP - General Family Medicine, STORE PERSON 09/22/16
--- OUTSIDE RECORDS SUMMARY | 2025-03-26 08:16 | XMS_ITS | Patient Health Record ---
Author Organization [facility] Address [address] [place] [address] Support Name Relationship Address Phone ABILIOJOEAN Guarantor Unknown [phone] Reason For Referral No Information Medications Medication SIG (Take, Route, Frequency, Duration) Notes Start Date End Date Status [place] Carbonate 100MG 1 ORAL three pricilla es daily; Duration: -3 Darrel-MJ 05/15/2012 Active LaMICtal 100MG 1 ORAL daily; Duration: -3 Darrel-MJ 05/15/20 12 Active Immunizations Vaccine Route Administration Date Status Comme nts Influenza, live, intranasal Intramuscular 05/15/2012 Pendi ng Problems Problem Type SNOMED Code ICD Code Onset Dates Problem Status W/U Status Risk Notes Problem Chronic bipolar I disorder, most recent episode depressed (disorder) (92032553) Bipolar I disorder, most recent episode (or current) depressed, unspecified (296.50) Active confirmed Major Problem Migraine (disorder) (40016706) Migraine, unspecified without mention of intractable migraine without mention of status migrainosus (346.90) Active confirmed Major Problem Gynecological examination normal (254348432538315) Routine gynecological examination (V72.31) Active confirmed Diag Problem Counseling NOS (V65.40) Active confirmed Diag Plan Of Treatment No Information Insurance Providers Payer Name Payer Address Payer Phone Subscriber Number Group Number Insured Name Patient Relationship to Insured Coverage Start Date Coverage End Date [facility] MEDICARE PPO [address] [place] [address] [phone] [id number] SACHIN KNOX Self - patient is the insured
[2025-03-26 08:21] VITALS: BP 126/76; BMI 32.1
== END 2025-03-26 08:46 | disposition home or self-care (01) ==
LOC: HO.HWS 08:09
PROVIDERS: PCP Nurse Practitioner Family; Visit Provider Advanced Practice Midwife
DX: Z01.419 Encounter for gynecological examination (general) (routine) without abnormal findings (principal)
CPT/HCPCS: 99386; 99459

== ENCOUNTER 2025-03-26 08:09 | Outpatient (REF) | payer BC, SELFPAY | END 2025-03-26 08:10 | disposition home or self-care (01) | LOC: HO.LNP 08:09 | PROVIDERS: PCP Nurse Practitioner Family; Visit Provider Advanced Practice Midwife | DX: Z01.419 Encounter for gynecological examination (general) (routine) without abnormal findings (principal); Z98.51 Tubal ligation status | CPT/HCPCS: 87626; 88175 ==

== ENCOUNTER 2025-04-07 08:10 | Outpatient (REF) | payer BC, SELFPAY ==
--- OUTSIDE RECORDS SUMMARY | 2025-04-07 08:16 | XMS_ITS | Clinical Summary ---
Author Organization [facility] Address [address] [place] [address] Care Team Providers Care Industrial Sales Manager Name Role Phone Laury Shine DANIELA Primary Care Provider [phone] Source Comments PLEASE NOTE, if this patient [...] right breast 06/18/2019 Overview (06/18/2019): As per [facility] no mammographic [...] form 03/2016- 04/06/16:Saw Dr. Jaden Gonzales, Neuro [phone]- Per neuro note- - doing MRI 03/2016- follow up 6 weeks- DUE approx 05/18 MELBA KNOX :1965 Result type:MRI Brain W/O ContrastResult date:04/19/2016 15:39Result status:Auth (Verified)Result title:MRI Brain W/O Contrast Performed by:-- Verified by:Brock Alejandre MD on April 20, 2016 16:32Encounter info:[id number], [facility], [facility], 04/19/2016 - Reason For Exam RESULT: MRI Brain W/O Contrast [facility] VISIT NUMBER :[id number] Patient Name : Melba Knox Date of : 1965 Date of Exam : 04/19/2016 Referring Physician : CHAMP GONZALES [address] [place] [address] Dr/Gokul [address] [place] [address] Exam : MR - BRAIN (C-) CPT 01563 - Room Description : [facility] Espr 1.5 Technique : Sag T1, Ax T2, Ax T2 Flair, Ax DWI, Ax SWI, Sag Flair Final Report HISTORY: Demyelinating disease. COMPARISON: 11/18/2010 performed at [facility] FINDINGS: Multiple supratentorial T2 hyperintense white matter [...] repeat 2021 H/O mammogram 08/04/2015 Overview (03/11/2018): [facility] 08/11/15 bilat dx mammo done-birads2, return [...] (06/02/2016): Emergent eye eval- 05/16/16- [facility] eye- [phone]- Retinal hemorrhage OS- - likely resolve on its own 04/06/[address] Kyra marquis MD Neuro- assessment- bipolar,migraine with aura,pineal gland cyst,ORTEGA,ptosis, dymelinating dz- tx start topiramate 50mg po BID, keep migraine diary, and do MRI no contrast for demyelinating dz [phone] Pineal gland cyst 05/27/2013 Overview (05/03/2016): Had [...] Problem Noted Date Diagnosed Date Resolved Date VCPSHBLG34/23/16 2016 08/16/2018 Immunizations Immunization Administration Dates Next Due HEP A-HEP B ([place]) 2016 Hep A, adult 09/30/2015 Hep B, Adult/Adol (UODYQSX-U-PHYRS/RECOMBIVAX-ADULT) 10/29/2015,09/30/2015 INFLUENZA, SEASONAL, INJECTABLE 05/27/2013 INFLUENZA, SEASONAL, [...] 1 Alive has 3, 1 [facility] is 62 yr old, [...] Screening 08/23/2020 08/23/2015 Hypertension Screening (#1) 03/21/2022 Zry-ITGKU-21 ( season) 2024 021, 11/26/2020 Alcohol and [...] examination for venereal disease GLUCOSE, BLOOD (POCT) [id number] Routine 2016 3:27 PM EST Palpitation Dizzy [...] Impressions 06/09/2019 10:12 AM EDT As per [facility] no mammographic [...] EST) HEPATITIS B SURFACE ANTIBODY NEGATIVE NEGATIVE [facility] HEPATITIS B SURFACE ANTIGEN NEGATIVE NEGATIVE [facility] HEPATITIS C VIRUS DIAGNOSTIC NEGATIVE NEGATIVE [facility] HEPATITIS B CORE ANTIBODY NEGATIVE NEGATIVE [facility] HEPATITIS A ANTIBODY TOTAL NEGATIVE NEGATIVE [facility] Blood specimen (specimen) Blood / Unknown 2016 3:52 PM EST 2016 4:04 PM EST Narrative [facility] - 2016 6:36 PM EST [employer] [address] [place] [address] BASELINE:1548 SAMPLE:1604 PT ID [id number] ORD# [id number] us Sanjuana TIPTON [facility] - BLOOD DRAW Edited Resul t - Final Performing Organization Address [facility] Co de Phone Number [address] [address], * HIV-1 & HIV-2 ANTIBODIES (2016 3:52 PM EST) HIV 1 AND 2 ANTIBODY SCREEN NEGATIVE NEGATIVE [facility] Comment: This assay is a [...] PM EST 2016 4:04 PM EST [facility] - 2016 7:06 PM EST [employer] [address] [place] [address] BASELINE:1548 SAMPLE:1604 PT ID [id number] ORD# [id number] Sanjuana Bass ANP LAB - BLOOD DRAW Final Result Performing Organization Address [facility] Co de Phone Number [address] [place] [address], * GLUCOSE, BLOOD (POCT) 28488 (2016 3:27 PM EST) GLUCOSE 130 65 - 139 mg/dL [facility] OFFICE POCT Blood specimen (specimen) Blood / Unknown 2016 3:27 PM EST Sanjuana Bass ANP LAB - BLOOD DRAW Final Result [facility] POCT * (ABNORMAL) LIPID PANEL (08/23/2015 8:24 AM EST) CHOLESTEROL 195 0 - 200 mg/dL [facility] TRIGLYCERIDES 124 0 - 150 mg/dL [facility] HDL CHOLESTEROL 56 >40 mg/dL [facility] LDL CALCULATED 115(H) 0 - 100 mg/dL [facility] TC-HDLC RATIO 3.5 0 - 4.4 mg/dL [facility] Blood specimen (specimen) Blood / Unknown 08/23/2015 8:24 AM EST 08/23/2015 8:24 AM EST Narrative [facility] - 08/23/2015 11:11 AM EST [employer] [address] [place] [address] PT ID [id number] ORD# [id number] Kerry Lamar PRODUCTION RECOVERY OPERATOR LAB - BLOOD DRAW Edited Result - Final [facility] [address] [place] [address], * PAP, LIQUID BASED (08/04/2015 2:56 PM EST) PAP NIL with ECc HPV neg NORMAL - ABNORMAL [facility] GC/CHLAMYDIA neg [facility] Specimen from uterine cervix (specimen) Cervix uteri structure / Unknown 08/04/2015 2:56 PM EST us Sanjuana Bass ANP LAB - PATHOLOGY AND CYTOLOGY AMBULATORY Final Result [facility] [address] [place] [address], from Last 3 Months or Most Recently Relevant to Health Maintenance Insurance BLUE CROSS/ [place] Member Subscriber Plan / Payer (Ef fective 2014-Present) Name:Melba Knox Relation to Subscriber:Self Name:MELBA KNOX Payer ID:[id number] (NAIC) Type:Indemnity Address: [facility] [address] MEDICAID Care Teams Industrial Sales Manager Relationship Specialty Start Date End Date Laury Shine FNP [address] [place] [address] PCP - General Family Medicine, PRODUCTION RECOVERY OPERATOR 09/22/16
--- OUTSIDE RECORDS SUMMARY | 2025-04-07 08:17 | XMS_ITS | Patient Health Record ---
Author Organization [facility] Address [address] [place] [address] Support Name Relationship Address Phone SACHIN KNOX Guarantor Unknown [phone] Reason For Referral No Information Medications Medication SIG (Take, Route, Frequency, Duration) Notes Start Date End Date Status [place] Carbonate 100MG 1 ORAL three pricilla es [...] I disorder, most recent episode depressed (disorder) (12255040) Bipolar I disorder, most recent episode (or current) depressed, unspecified (296.50) Active confirmed Major Problem Migraine (disorder) (71712718) Migraine, unspecified without mention of intractable migraine without mention of status migrainosus (346.90) Active confirmed Major Problem Gynecological examination normal (090762909881875) Routine gynecological examination (V72.31) Active confirmed Diag Problem Counseling (884742176) Counseling NOS (V65.40) Active confirmed Diag Plan Of Treatment No Information Insurance Providers Payer Name Payer Address Payer Phone Subscriber Number Group Number Insured Name Patient Relationship to Insured Coverage Start Date Coverage End Date [facility] MEDICARE PPO [address] [place] [address] [phone] [id number] SACHIN KNOX Self - patient is the insured
[2025-04-07 10:54] LABS: Cholesterol 162 mg/dL (<200); HDL Cholesterol 45 mg/dL (>40); Triglycerides 134 mg/dL (<150)
== END 2025-04-07 08:11 | disposition home or self-care (01) ==
LOC: HO.HMGCLDS 08:10
PROVIDERS: PCP Nurse Practitioner Family; Visit Provider Nurse Practitioner Family
DX: E78.5 Hyperlipidemia, unspecified (principal)
CPT/HCPCS: 36415; 80061

== ENCOUNTER 2025-04-14 15:50 | Outpatient (AMB) | payer BC, SELFPAY ==
--- NOTE | 2025-04-14 15:10 | A.OFFPC_ITS ---
Intake Visit Reasons: Telehealth 2 mos HLD Intake Note: patient here for 2 month follow up for HLD Microcomputer Technician Required: No Is last menstrual period known: No Post menopausal: No Patient : No Allergies Sulfa (Sulfonamide Antibiotics) (SULFA (SULFONAMIDE ANTIBIOTICS)) Allergy (Unknown, Verified 04/14/25 15:10) RASH,ITCHY Tobacco use date assessed: 04/14/25 Dental Screening Dental Screen Date: 04/14/25 Did you have a dental visit in the last 12 months?: No Did you have a dental problem in the last 6 months where you did not have access to dental care?: No Was dental information given to patient?: No HPI HPI Comments History of Present Illness Details 59-year-old [facility] follow-up. She admits to taking her medications as prescribed without adverse reactions. She notes that she has been making healthy lifestyle changes. She offers no complaints and denies acute symptoms at this time. [facility] Medical History Bipolar 1 disorder Depression Anxiety Vertigo Swelling of both ankles Opioid abuse, in remission Cataract, left eye Migraine Surgical History H/O tubal ligation H/O eye surgery S/P tonsillectomy Family History Father Alcohol abuse Sister Alcohol abuse FH: mental illness High blood pressure Brother Substance abuse High blood pressure Diabetes Mother High blood pressure Skin cancer Colon cancer Kidney disease Social History Housing: House Patient Tobacco Use Status: Current everyday Tobacco user Cigarettes Per Day: 10 Years Smoked: 20 e-Cigarette/Vaping Use: Never Used Second Hand Smoke Exposure: No service: No Current occupational status: employed 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 Raad Willard, Herminia Garcia, Al Finney and colleagues, with an educational mary from [employer]. Review of Systems Const Details: Denies chills, Denies fatigue, Denies fever(s), Denies headache(s) and Denies weakness Cardiac Denies chest pain, Denies claudication, Denies leg edema, Denies lightheadedness, Denies palpitations, Denies dyspnea, Denies dyspnea on exertion, Denies orthopnea and Denies other (Loss of consciousness) Resp Denies cough, Denies excessive phlegm production, Denies dyspnea, Denies dyspnea on exertion, Denies snoring and Denies wheezing Physical exam (Primary Care) Tobacco/Smoking Status: Tobacco use Status Tobacco use date assessed 04/14/25 04/14/25 15:11 Patient Tobacco Use Status Current everyday Tobacco 04/14/25 15:11 e-Cigarette/Vaping Use Never Used 04/14/25 15:11 Thrive Assessment: Date of Thrive Assessment Date Thrive assessed 10/29/24 04/14/25 15:11 Const Other: Patient is alert and oriented x3 Telehealth Telehealth Telehealth Platform: Telephone Location of provider rendering services: practice address Location of patient: address on file Patient Identification confirmed using: Name, : Yes Telehealth method: voice only Patient verbally consented to treatment: Yes Patient verbally consented to billing insurance company: Yes Patient informed of any privacy concerns related to visit: Yes Coding Level of Care Code Tele Est Pt Level 3 (30373) Diagnoses Hyperlipidemia E78.5 Time Spent (min) 10 Assessment & Plan Assessment & Plan (1) Hyperlipidemia: Code(s): E78.5 - Hyperlipidemia, unspecified Category: Medical Plan: Recent triglycerides, total cholesterol, LDL, and HDL levels are normal, 134, 162, 91, and 45 respectively. Continue to take atorvastatin 10 mg daily at bedtime. Advised to limit foods high in saturated fat and avoid foods high in trans fat. Routine exercise encouraged. As for 10-12 hours, may drink water, and perform lipid panel blood work 2-3 days before next visit. Follow-up in 3 months for hyperlipidemia and hypertension. Return sooner with symptoms or concerns. Verbalized understanding and agreed with the plan. Orders: Orders Lipid Panel 3 Months E78.5 - Hyperlipidemia, unspecified
--- OUTSIDE RECORDS SUMMARY | 2025-04-14 17:18 | XMS_ITS | Clinical Summary ---
Author Organization [facility] Address [address] [place] [address] Care Team Providers Care Pest Control Worker Helper Name Role Phone Laury Shine DANIELA Primary Care Provider [phone] Source Comments PLEASE NOTE, if this patient [...] right breast 06/18/2019 Overview (06/18/2019): As per [facility] no mammographic [...] form 03/2016- 04/06/16:Saw Dr. Jaden Gonzales, Neuro [phone]- Per neuro note- - doing MRI 03/2016- follow up 6 weeks- DUE approx 05/18 MELBA KNOX :1965 Result type:MRI Brain W/O ContrastResult date:04/19/2016 15:39Result status:Auth (Verified)Result title:MRI Brain W/O Contrast Performed by:-- Verified by:Brock Alejandre MD on April 20, 2016 16:32Encounter info:[id number], [facility], 04/19/2016 - Reason For Exam RESULT: MRI Brain W/O Contrast [facility] VISIT NUMBER :[id number] Patient Name : Melba Knox Date of : 1965 Date of Exam : 04/19/2016 Referring Physician : CHAMP GONZALES [address] [place] [address] Dr/Gokul [address] [place] [address] Exam : MR - BRAIN (C-) CPT 85932 - Room Description : [facility] Espr 1.5 Technique : Sag T1, Ax T2, Ax T2 Flair, Ax DWI, Ax SWI, Sag Flair Final Report HISTORY: Demyelinating disease. COMPARISON: 11/18/2010 performed at [facility] FINDINGS: Multiple supratentorial T2 hyperintense white [...] repeat 2021 H/O mammogram 08/04/2015 Overview (03/11/2018): [facility] 08/11/15 bilat dx mammo done-birads2, return [...] (06/02/2016): Emergent eye eval- 05/16/16- [facility] eye- [phone]- Retinal hemorrhage OS- - likely resolve on its own 04/06/[address] Kyra marquis MD Neuro- assessment- bipolar,migraine with aura,pineal gland cyst,ORTEGA,ptosis, dymelinating dz- tx start topiramate 50mg po BID, keep migraine diary, and do MRI no contrast for demyelinating dz [phone] Pineal gland cyst 05/27/2013 Overview (05/03/2016): Had [...] Problem Noted Date Diagnosed Date Resolved Date JKOJNKPR78/23/16 2016 08/16/2018 Immunizations Immunization Administration Dates Next Due HEP A-HEP B ([place]) 2016 Hep A, adult 09/30/2015 Hep B, Adult/Adol ([id number]-E-[id number]/RECOMBIVAX-ADULT) 10/29/2015,09/30/2015 INFLUENZA, SEASONAL, INJECTABLE 05/27/2013 INFLUENZA, SEASONAL, [...] 1 Alive has 3, 1 [facility] home is 62 yr old, 1 passsed [...] Screening 08/23/2020 08/23/2015 Hypertension Screening (#1) 03/21/2022 Ing-FSUAL-41 ( season) 2024 021, 11/26/2020 Alcohol and [...] examination for venereal disease GLUCOSE, BLOOD (POCT) [id number] Routine 2016 3:27 PM EST Palpitation Dizzy [...] Impressions 06/09/2019 10:12 AM EDT As per [facility] no mammographic [...] EST) HEPATITIS B SURFACE ANTIBODY NEGATIVE NEGATIVE [facility] HEPATITIS B SURFACE ANTIGEN NEGATIVE NEGATIVE [facility] HEPATITIS C VIRUS DIAGNOSTIC NEGATIVE NEGATIVE [facility] HEPATITIS B CORE ANTIBODY NEGATIVE NEGATIVE [facility] HEPATITIS A ANTIBODY TOTAL NEGATIVE NEGATIVE [facility] Blood specimen (specimen) Blood / Unknown 2016 3:52 PM EST 2016 4:04 PM EST Narrative [facility] - 2016 6:36 PM EST [employer] [address] [place] [address] BASELINE:1548 SAMPLE:1604 PT ID [id number] ORD# [id number] us Sanjuana T[facility] - BLOOD DRAW Edited Resul t - Final Performing Organization Address [facility] Co de Phone Number [address] [address], * HIV-1 & HIV-2 ANTIBODIES (2016 3:52 PM EST) HIV 1 AND 2 ANTIBODY SCREEN NEGATIVE NEGATIVE [facility] Comment: This assay is a 4th generation [...] 3:52 PM EST 2016 4:04 PM EST [facility] - 2016 7:06 PM EST [employer] [address] [place] [address] BASELINE:1548 SAMPLE:1604 PT ID [id number] ORD# [id number] Sanjuana Bass ANP LAB - BLOOD DRAW Final Result Performing Organization Address [facility] Co de Phone Number [address] [place] [address], * GLUCOSE, BLOOD (POCT) [id number] (2016 3:27 PM EST) GLUCOSE 130 65 - 139 mg/dL [facility] OFFICE POCT Blood specimen (specimen) Blood / Unknown 2016 3:27 PM EST Sanjuana Bass ANP LAB - BLOOD DRAW Final Result [facility] POCT * (ABNORMAL) LIPID PANEL (08/23/2015 8:24 AM EST) CHOLESTEROL 195 0 - 200 mg/dL [facility] TRIGLYCERIDES 124 0 - 150 mg/dL [facility] HDL CHOLESTEROL 56 >40 mg/dL [facility] LDL CALCULATED 115(H) 0 - 100 mg/dL [facility] TC-HDLC RATIO 3.5 0 - 4.4 mg/dL [facility] Blood specimen (specimen) Blood / Unknown 08/23/2015 8:24 AM EST 08/23/2015 8:24 AM EST Narrative [facility] - 08/23/2015 11:11 AM EST [employer] [address] [place] [address] PT ID [id number] ORD# [id number] Kerry Lamar CREDIT UNION MANAGER LAB - BLOOD DRAW Edited Result - Final [facility] [address] [place] [address], * PAP, LIQUID BASED (08/04/2015 2:56 PM EST) PAP NIL with ECc HPV neg NORMAL - ABNORMAL [facility] GC/CHLAMYDIA neg [facility] Specimen from uterine cervix (specimen) Cervix uteri structure / Unknown 08/04/2015 2:56 PM EST us Sanjuana Bass ANP LAB - PATHOLOGY AND CYTOLOGY AMBULATORY Final Result [facility] [address] [place] [address], from Last 3 Months or Most Recently Relevant to Health Maintenance Insurance [employer]/ [place] Member Subscriber Plan / Payer (Ef fective 2014-Present) Name:Melba Knox Relation to Subscriber:Self Name:MELBA KNOX Payer ID:[id number] (NAIC) Type:Indemnity Address: [facility] [address] MEDICAID Care Teams Pest Control Worker Helper Relationship Specialty Start Date End Date Laury Shine FNP [address] [place] [address] PCP - General Family Medicine, CREDIT UNION MANAGER 09/22/16
--- OUTSIDE RECORDS SUMMARY | 2025-04-14 17:18 | XMS_ITS | Patient Health Record ---
Author Organization [facility] Address [address] [place] [address] Support Name Relationship Address Phone ABILIOSACHIN Guarantor Unknown [phone] Reason For Referral No Information Medications Medication SIG (Take, Route, Frequency, Duration) Notes Start Date End Date Status Rumsey Carbonate 100MG 1 ORAL three pricilla es [...] I disorder, most recent episode depressed (disorder) (43364529) Bipolar I disorder, most recent episode (or current) depressed, unspecified (296.50) Active confirmed Major Problem Migraine (disorder) (20973855) Migraine, unspecified without mention of intractable migraine without mention of status migrainosus (346.90) Active confirmed Major Problem Gynecological examination normal (275087561349515) Routine gynecological examination (V72.31) Active confirmed Diag Problem Counseling (513372119) Counseling NOS (V65.40) Active confirmed Diag Plan Of Treatment No Information Insurance Providers Payer Name Payer Address Payer Phone Subscriber Number Group Number Insured Name Patient Relationship to Insured Coverage Start Date Coverage End Date [facility] MEDICARE PPO [address] [place] [address] [id number] SACHIN KNOX Self - patient is the insured
== END 2025-04-14 16:17 | disposition home or self-care (01) ==
LOC: HO.HMCFM 15:50
PROVIDERS: PCP Nurse Practitioner Family; Visit Provider Nurse Practitioner Family
DX: E78.5 Hyperlipidemia, unspecified (principal)

== ENCOUNTER → 2025-04-14 15:50 | Outpatient (BNVA) | payer BC, SELFPAY | PROVIDERS: PCP Nurse Practitioner Family; Visit Provider Nurse Practitioner Family | DX: E78.5 Hyperlipidemia, unspecified (principal) | CPT/HCPCS: 98966 ==

== ENCOUNTER 2025-06-03 14:40 | Outpatient (AMB) | payer BC, SELFPAY ==
--- NOTE | 2025-06-03 15:06 | MHC.OFFVIS ---
Intake Visit Reasons: 6m migraine Allergies Sulfa (Sulfonamide Antibiotics) (SULFA (SULFONAMIDE ANTIBIOTICS)) Allergy (Unknown, Verified 06/03/25 15:13) RASH,ITCHY Medication List - Last Reconciled 06/03/25 by Sophia Vasquez CNP amitriptyline 25 mg PO BEDTIME atorvastatin 10 mg PO BEDTIME 30 days lisinopril 10 mg PO DAILY meclizine 25 mg PO Q8H PRN sertraline 25 mg PO DAILY sumatriptan succinate mg PO DIRECTED topiramate 100 mg PO BEDTIME HPI Comments Details: She was doing okay. Had few migraines over the summer triggered by the heat. Had 2 migraines in the last month. Sumatriptan as needed helps. Few episodes of visual aura for about 10 minutes that are not followed by headache. Had episode of vertigo at the beginning of 04/2025, uses meclizine as needed. Mood was okay. BP has been okay. Migraine triggers include stress, lack of sleep, or skipping meals. She was seen at [facility] on 07/29/2024 for high blood pressure, with BP apparently > 200/100. Labs, EKG, CXR, and CT scan were negative for acute findings and she was discharged home with lisinopril 10mg. BP has improved and daily headaches that had been ongoing for few months resolved. More forgetful and feels short-term memory is not as sharp. Developed severe pain in middle of lower back with sharp/shooting pain down both legs when standing from recliner on 12/15/2023 which improved. Occasional low back pain, achy. No pain or numbness/tingling in legs. Diclofenac did not help much. Migraines previously 1-2/ wk lasting 20 min to 2 hrs. Triggers are stress and weather changes/ heat and hormonal changes. Gets pins and needles in right cheek and eye lid for upto 1-2 hrs and sensitivity to touch since mid March a few times. Gets a pulsatile hum in the head when stressed. Controlled with Excedrin migraine or Sumatriptan. Visual auras 2/ day for a few minutes without headache with bright specks. Usually gets visual migraine. Numbness in right face comes and goes when stressing and anxious. Occasional episodes of LUE tingling for 1-3 minute. Auras last 15 minutes shimmering vision and light show followed by ORTEGA but lot less intense. No diplopia or dysphagia. She has a history of migraines with visual aura. They're frequently associated with visual aura of visual field defect and monserrat out of her vision. When she does get the migraine headache it usually lasts from a half hour to an hour and is usually relieved by taking 2 Excedrin migraine. She has been off the propranolol for more than a year. She is known to have a benign pineal cyst which was followed with serial MRIs with no change in size. The last MRI was in October of 2010. She also has nonspecific T2 hyperintensities in the white matter which are also unchanged. She is treated for bipolar disorder that appears to be stable on a combination of Lamictal and lithium. She has some trouble initiating and maintaining sleep but wishes not to try any medication. She occasionally takes melatonin. [facility] Medical History (Updated 06/03/25 @ 15:10 by Sophia Vasquez CNP) Bipolar 1 disorder Depression Anxiety Vertigo Swelling of both ankles Opioid abuse, in remission Cataract, left eye Migraine Surgical History H/O tubal ligation H/O eye surgery S/P tonsillectomy Family History Father Alcohol abuse Sister Alcohol abuse FH: mental illness High blood pressure Brother Substance abuse High blood pressure Diabetes Mother High blood pressure Skin cancer Colon cancer Kidney disease Social History Housing: House Patient Tobacco Use Status: Current everyday Tobacco user Cigarettes Per Day: 10 Years Smoked: 20 e-Cigarette/Vaping Use: Never Used Second Hand Smoke Exposure: No service: No Current occupational status: employed 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 Current occupational exposures/hazards: No Cognitive needs: No Hearing needs: No Vision needs: Yes Female Reproductive History Menstrual Age of Menarche: 13 Review of Systems Const Denies chills, Denies daytime sleepiness, Reports difficulty sleeping, Denies fatigue, Denies fever(s), Denies frequent falls, Reports headache(s), Denies increased appetite, Denies poor appetite, Denies snoring, Denies weakness, Denies weight gain and Denies weight loss Eyes Denies loss of vision ENT Denies vertigo, Denies dizziness, Reports headache(s) and Denies neck pain Card Denies chest pain at rest, Denies chest pain with activity, Denies syncope, Denies leg edema, Denies palpitations, Denies dyspnea and Denies dyspnea on exertion Resp Denies cough, Denies dyspnea, Denies dyspnea on exertion and Denies snoring GI Denies abdominal pain, Denies constipation, Denies heartburn, Denies diarrhea and Denies nausea Denies urinary frequency, Denies urinary incontinence and Denies urinary urgency Musc Denies abnormal gait, Denies back pain, Denies myalgias, Denies arthralgias, Denies neck pain, Denies numbness and Denies tingling Neuro Denies abnormal gait, Denies vertigo, Denies dizziness, Denies syncope, Denies frequent falls, Reports headache(s), Denies lack of coordination, Denies loss of vision, Denies memory loss, Denies numbness, Denies Other visual disturbances, Denies restless legs, Denies seizure-like activity, Denies tingling, Denies paresthesias, Denies tremor(s) and Denies weakness Psych Denies anxiety, Reports depression, Denies auditory hallucinations, Denies memory loss and Denies visual hallucinations Endo Denies fatigue and Denies palpitations Physical Exam Const Other: General Appearance:? normal, in no acute distress. Heart:? S1, S2 normal, no murmurs. Lungs:? clear anteriorly and posteriorly. Musculoskeletal:? normal. Extremities:? no edema. Psych:? alert, oriented, cognitive function intact, cooperative with exam. Neuro Other: Abnormal Neurological Findings:?none.? Mental Status: alert and oriented X 3. Normal attention, orientation, memory, and affect. Cranial Nerves: Pupils are equal, round, and reactive to light. External ocular muscles are intact. Visual roblero are full, no ptosis. Face is symmetrical, no facial weakness or droop. Facial sensations are normal. Tongue protrudes in midline. Palate elevates symmetrically. Shoulder shrugging is normal Motor Examination: Normal muscle tone, bulk and strength. No atrophy or fasciculations. No drift of the extended upper extremities. DTR 2+. Plantars are flexor. Sensory Exam: Normal light touch, temperature, pinprick, vibration, and joint-position sensations. Rhomberg sign is absent. Coordination: No ataxia. No titubation. Gait Exam: Within normal limits. Cerebellar Signs: Prdhoi-lm-gcfo is okay. Extrapyramidal System: No tremor, rigidity with normal facial expressions. No bradykinesia. No bradyphrenia. Normal arm swing and posture. No propulsion or retropulsion. Speech: Normal. Results Reviewed Results Reviewed: 08/26/22 Sleep study showed mild JACEY gracie in supine position.. Advised weight loss and positional therapy to not sleep supine. MRI LS Spine 12/2023: Mild multilevel lumbar spondylosis most significant at L5-S1. No definite nerve root impingement or high-grade central canal or neural foraminal stenosis. Mild edematous endplate changes L5-S1 oriented to the right. CT brain at [facility] 07/29/2024: CT scan no evidence of acute intracranial hemorrhage or edematous territorial infarction, moderate to extensive underlying microangiopathy and generalized cerebral volume loss 09/05/24 EEG- WNL 07/2024 labs ok Assessment & Plan Assessment & Plan (1) Migraine with aura: Code(s): G43.109 - Migraine with aura, not intractable, without status migrainosus Category: Medical Qualifiers: Status migrainosus presence: without status migrainosus Intractability: not intractable Qualified Code(s): G43.109 - Migraine with aura, not intractable, without status migrainosus Plan: Continue topiramate 100mg 1 tablet at bedtime. Continue amitriptyline 25mg 1 tablet at bedtime. Continue sumatriptan 100mg 1 tablet as needed for migraine. (2) Vertigo: Code(s): R42 - Dizziness and giddiness Category: Medical Plan: Continue meclizine 25mg 1 tablet as needed q8h for dizziness. (3) Anxiety: Code(s): F41.9 - Anxiety disorder, unspecified Category: Medical Plan: Continue sertraline 25mg 1 tablet daily. Coding Level of Care Code Est Pt Level 4 (98417) Diagnoses Migraine with aura and without status migrainosus, not intractable G43.109 Status migrainosus presence: without status migrainosus Intractability: not intractable Vertigo R42 Anxiety F41.9
== END 2025-06-03 15:21 | disposition home or self-care (01) ==
LOC: HO.HSM 14:41
PROVIDERS: PCP Nurse Practitioner Family; Visit Provider Registered Nurse
DX: G43.109 Migraine with aura, not intractable, without status migrainosus (principal); R42 Dizziness and giddiness; F41.9 Anxiety disorder, unspecified
CPT/HCPCS: 99214

== ENCOUNTER 2025-07-08 08:00 | Outpatient (REF) | payer BC, SELFPAY ==
--- OUTSIDE RECORDS SUMMARY | 2025-07-08 08:03 | XMS_ITS | Patient Health Record ---
Author Organization [facility] Address [address] [place] [address] Support Name Relationship Address Phone ABILIOSACHIN Guarantor Unknown [phone] Reason For Referral No Information Medications Medication SIG (Take, Route, Frequency, Duration) Notes Start Date End Date Status [place] Carbonate 100MG 1 ORAL three pricilla es [...] I disorder, most recent episode depressed (disorder) (17769802) Bipolar I disorder, most recent episode (or current) depressed, unspecified (296.50) Active confirmed Major Problem Migraine (disorder) (42253573) Migraine, unspecified without mention of intractable migraine without mention of status migrainosus (346.90) Active confirmed Major Problem Gynecological examination normal (411753618218156) Routine gynecological examination (V72.31) Active confirmed Diag Problem Counseling (490147809) Counseling NOS (V65.40) Active confirmed Diag Plan Of Treatment No Information Insurance Providers Payer Name Payer Address Payer Phone Subscriber Number Group Number Insured Name Patient Relationship to Insured Coverage Start Date Coverage End Date [facility] MEDIC[facility] PPO [address] [place] [address] [phone] [id number] SACHIN KNOX Self - patient is the insured
[2025-07-08 11:30] LABS: Cholesterol 172 mg/dL (<200); HDL Cholesterol 48 mg/dL (>40); Triglycerides 92 mg/dL (<150)
== END 2025-07-08 08:01 | disposition home or self-care (01) ==
LOC: HO.HMGCLDS 08:00
PROVIDERS: PCP Nurse Practitioner Family; Visit Provider Nurse Practitioner Family
DX: E78.5 Hyperlipidemia, unspecified (principal)
CPT/HCPCS: 36415; 80061

== ENCOUNTER 2025-07-14 08:18 | Outpatient (AMB) | payer BC, SELFPAY ==
--- NOTE | 2025-07-14 08:20 | MHC.PC.OV ---
Vital Signs 07/14/25 08:25 Height 5 ft 7 in Weight 205 lb 4 oz BMI 32.1 BP 130/63 Blood Pressure Location Lt brachial Position Sitting Respiration 16 Pulse 86 Pulse Source Pulse Oximeter Temp 97.4 F Temp Source Oral Pulse Oximetry (%) 100 Oxygen Delivery Method Room Air Intake Visit Reasons: 3 mos HTN, HLD Intake Note: patient here for 3 month follow up on HTN, HLD Automation Developer Required: No Is last menstrual period known: No Post menopausal: No Patient : No Allergies Sulfa (Sulfonamide Antibiotics) (SULFA (SULFONAMIDE ANTIBIOTICS)) Allergy (Unknown, Verified 07/14/25 08:43) RASH,ITCHY Medication List - Last Reconciled 07/14/25 by Shirley Batres CNP amitriptyline 25 mg PO BEDTIME atorvastatin 10 mg PO BEDTIME 30 days lisinopril 10 mg PO DAILY meclizine 25 mg PO Q8H PRN sertraline 25 mg PO DAILY 90 days sumatriptan succinate mg PO DIRECTED topiramate 100 mg PO BEDTIME Tobacco use date assessed: 07/14/25 Dental Screening Dental Screen Date: 07/14/25 Did you have a dental visit in the last 12 months?: No Did you have a dental problem in the last 6 months where you did not have access to dental care?: No Was dental information given to patient?: No HPI HPI Comments History of Present Illness Details 59-year-old female presents for hypertension and hyperlipidemia follow-up. She admits to taking her medications as prescribed without adverse reactions. She generally makes healthy lifestyle changes. However, lately she has been eating out a lot. She offers no complaints and denies acute symptoms at this time. [facility] Medical History (Updated 06/03/25 @ 15:10 by Sophia Vasquez CNP) Bipolar 1 disorder Depression Anxiety Vertigo Swelling of both ankles Opioid abuse, in remission Cataract, left eye Migraine Surgical History H/O tubal ligation H/O eye surgery S/P tonsillectomy Family History Father Alcohol abuse Sister Alcohol abuse FH: mental illness High blood pressure Brother Substance abuse High blood pressure Diabetes Mother High blood pressure Skin cancer Colon cancer Kidney disease Social History Housing: House Patient Tobacco Use Status: Current everyday Tobacco user Cigarettes Per Day: 10 Years Smoked: 20 Packs per year/per ci.00 e-Cigarette/Vaping Use: Never Used Second Hand Smoke Exposure: No Patient : No service: No Current occupational status: employed 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 Current occupational exposures/hazards: No Cognitive needs: No Hearing needs: No Vision needs: Yes Female Reproductive History Menstrual Age of Menarche: 13 Questionnaire Thrive Questionnaire Date Thrive assessed: 10/29/24 I am a: Patient What is your living situation today?: I have a steady place to live Within the past 12 months, did the food you bought not last and you didn't have the money to get more?: Never true Within the past 12 months, did you worry whether your food would run out before you got money to buy more?: Never true Do you have trouble paying for medicines?: No Do you have trouble getting transportation to medical appointments?: No Do you have trouble paying your heating and electricity bill?: No Do you have trouble taking care of your child, family member or friend?: No Do you have trouble with day-to-day activities such as bathing, preparing meals, shopping, managing finances, etc.?: No Are you currently unemployed and looking for a job?: No Are you interested in more education?: No Please select the resources that you would like help with: None THRIVE Score: 0 HAMMAD-7 AMB Questionnaire HAMMAD-7 Date HAMMAD - 7 assessed: 11/05/24 Source: Developed by Drs. Raad Willard, Herminia Garcia, Al Finney and colleagues, with an educational mary from [employer]. Review of Systems Const Details: Const Denies chills, Denies fatigue, Denies fever(s), Denies headache(s) and Denies weakness ENT Denies dizziness and Denies headache(s) Card Denies chest pain, Denies lightheadedness, Denies dyspnea and Denies other (Palpitations) Resp Denies cough, Denies dyspnea, Denies wheezing and Denies other ( shortness of breath) GI Denies abdominal pain, Denies melena, Denies hematochezia, Denies change in bowel habits, Denies dyspepsia and Denies nausea Denies hematuria and Denies dysuria Musc Denies abnormal gait, Denies myalgias, Denies arthralgias, Denies numbness and Denies tingling Skin/Breast Denies rash, Denies unusual bruising and Denies wounds Neuro Denies abnormal gait, Denies dizziness, Denies headache(s), Denies memory loss, Denies numbness, Denies Sensory deficit (Neuro), Denies tingling and Denies weakness Psych Denies anxiety, Denies depression, Denies memory loss Endo Denies cold intolerance, Denies fatigue, Denies heat intolerance, Denies polydipsia and Denies polyuria Aller/Immun Denies wheezing Physical exam (Primary Care) Vital Signs: Last Vital Signs Temp 97.4 F 07/14/25 08:25 Pulse 86 07/14/25 08:25 Resp 16 07/14/25 08:25 BP 130/63 07/14/25 08:25 Pulse Ox 100 07/14/25 08:25 Oxygen Delivery Method Room Air 07/14/25 08:25 BMI result Body Mass Index 32.1 Tobacco/Smoking Status: Tobacco use Status Tobacco use date assessed 07/14/25 07/14/25 08:28 Patient Tobacco Use Status Current everyday Tobacco 07/14/25 08:23 e-Cigarette/Vaping Use Never Used 07/14/25 08:23 Thrive Assessment: Date of Thrive Assessment Date Thrive assessed 10/29/24 07/14/25 08:23 Const Other: General: no acute distress and well developed Nutritional Appearance: well nourished Orientation/consciousness: patient oriented x3 [facility] Head: Yes normocephalic and Yes atraumatic Eyes General: appearance normal, both eyes and all related structures Pupils: Equal, round and reactive pupils present EOM: EOMs intact bilaterally Resp Effort & Inspection: normal respiratory effort Auscultation: clear to auscultation bilaterally Cardio Rate: regular rate Rhythm: regular rhythm Heart sounds: S1 normal heart sound present, S2 normal heart sound present, no gallops, no murmurs and no rubs Extrem General: Yes normal to inspection, No edema and No calf tenderness Skin General: warm and dry. Normal skin color. Normal skin turgor Neuro General: patient oriented x3, gait normal and no focal neuro deficit Cranial nerves: Yes Equal, round and reactive pupils present Cognition (Neuro): normal cognition Gait exam (Neuro): Normal gait present Sensory Exam: No Sensory deficit (Neuro) Psych Appearance: grossly normal Affect: normal affect Attitude: cooperative Thought process: Normal thought process present Coding Level of Care Code Est Pt Level 3 (67043) Diagnoses Essential hypertension I10 Hyperlipidemia E78.5 Assessment & Plan Assessment & Plan (1) Essential hypertension: Code(s): I10 - Essential (primary) hypertension Category: Medical Plan: Blood pressure is 130/63, within goal of less than 140/90. Continue current treatment regimen. Low-sodium diet encouraged. Follow-up in 3 months for transfer of care with a new PCP within the practice. Return sooner with symptoms or concerns. Verbalized understanding and agreed with plan. (2) Hyperlipidemia: Code(s): E78.5 - Hyperlipidemia, unspecified Category: Medical Plan: Recent LDL level is slightly elevated, 106. Triglycerides, total cholesterol, and HDL levels are normal. Continue current treatment regimen. Advised to limit foods high in saturated fat and avoid foods high in trans fat. Routine exercise encouraged. Fast for 10-12 hours, may drink water, and perform lipid panel blood work a few days before next visit. Follow-up in 3 months. Verbalized understanding and agreed with the plan. Orders: Orders Lipid Panel 3 Months E78.5 - Hyperlipidemia, unspecified
[2025-07-14 08:25] VITALS: BP 130/63; PULSE 86; RESP 16; TEMP 36.3; O2SAT 100; BMI 32.1
== END 2025-07-14 08:49 | disposition home or self-care (01) ==
LOC: HO.HMCFM 08:19
PROVIDERS: PCP Nurse Practitioner Family; Visit Provider Nurse Practitioner Family
DX: I10 Essential (primary) hypertension (principal); E78.5 Hyperlipidemia, unspecified